=== PATIENT | female | born 1940 | race Caucasian/White ===

== ENCOUNTER 2018-05-08 15:46 | Inpatient (IN) | payer MEDICARE, OTHER ==
[~2018-05-08] VITALS: Ht 160 cm; Wt 55.8 kg
--- NOTE | ~2018-05-08 | PR ---
[place], [place] PROGRESS NOTE NAME: SOMMER GRANDA UNIT #: [id number] ROOM: 426 DOCTOR: SHRUTI STREETERJUNE BIRTHDATE: [birth year] DOS: 05/17/2018 SUBJECTIVE: The patient is a 77-year-old female who is being followed for C. diff colitis and a GI bleed. She remains on oral vancomycin as well as IV Flagyl. She continues to have loose stools, though per documentation of her I and O, they are decreasing. The patient herself is very lethargic, unable to give any review of systems. No further emesis documented. She is receiving tube feeding via PEG. She has been afebrile. LABORATORY DATA: BUN 12, creatinine 0.45. PHYSICAL EXAMINATION: GENERAL: A 77-year-old very lethargic female in no acute distress. HEENT: Normocephalic. NECK: Seems supple. LUNGS: Clear to auscultation bilaterally. Respirations even and unlabored. HEART: Regular rhythm. No murmur appreciated. ABDOMEN: Soft, nondistended. PEG site, no purulent discharge or cellulitis. EXTREMITIES: No edema. SKIN: Warm, dry, free of rashes. GENITOURINARY: She does currently have a liquid stool with small amount of bishop blood in it. ASSESSMENT AND PLAN: Clostridium difficile with gastrointestinal bleed as well as she has had some issues with recurrent vomiting; however, according to her I and O charting that seems to have improved. The patient remains on oral vancomycin via her PEG and is off of IV Flagyl at this time. 1 agreed with the assessment and plan done by the nurse practitioner, Nevaeh Bahena on 05/17/2018. I reviewed the labs and imaging and made the necessary changes in the note. NEVAEH BAHENA CNP [place], [place] PROGRESS NOTE NAME: SOMMER GRANDA UNIT #: [id number] ROOM: 426 DOCTOR: SHRUTI STREETERJUNE BIRTHDATE: [birth year] Eleanor Carbajal MD CM:PNJOYCE [id number] JUNE SHRUTI [facility] 05/31/18 1039 interface
--- NOTE | ~2018-05-08 | O ---
[place], [place] OPERATIVE NOTE NAME: SOMMER GRANDA UNIT #: [id number] ROOM: 426 DOCTOR: JORGE ALBERTO LOPEZ MD BIRTHDATE: [birth year] DOS: 05/12/2018 HISTORY OF PRESENT ILLNESS: A 77-year-old patient who presented with malnutrition, protein-calorie type, emaciation, and dementia. Consultation has been dictated already in detail. The patient with known history of C. diff colitis, on the therapy. PROCEDURE: Today's procedure part of investigation is panendoscopy plus PEG tube placement. PREMEDICATION: Propofol. SCOPE: Olympus forward-viewing gastroscope Q10 video. REPORT: After putting the patient in left lateral position and application of lubricant to the scope, the scope was introduced. Thereafter, under direct visualization, advanced through the length of esophagus without difficulty. Gastric pouch was entered. Transillumination sign in subxiphoid, left leniency area was noticed, anterior abdominal wall aseptically prepped. Duodenal patency assured, 2 mL of Xylocaine was injected in subxiphoid area corresponding with best transillumination sign. Trocar was introduced. Guidewire was advanced, grasped with forceps, orally extracted. Gastrostomy tube Libyan 20 was anchored to it, orally pulled recovered from the surface of the abdomen. Anchors placed, patency checked, tolerated the procedure well. IMPRESSION: Percutaneous endoscopic gastrostomy, neurogenic dysphagia, and protein-calorie malnutrition. PLAN: Caloric needs and support for ongoing hypermetabolic state "C. difficile colitis." Work in progress. JORGE ALBERTO LOPEZ MD CM:OPRECORD:OPERATIVE NOTE [id number] JORGE ALBERTO LOPEZ MD 05/12/18 1246 interface
--- NOTE | ~2018-05-08 | PR ---
[place], [place] PROGRESS NOTE NAME: SOMMER GRANDA [facility] #: [id number] UNIT #: [id number] ROOM: 426 DOCTOR: VIDA URIAS MD BIRTHDATE: [birth year] DOS: 05/17/2018 SUBJECTIVE: The patient has been admitted to the hospital with unspecified GI bleeding, urinary tract infection, dementia, confusion, metabolic encephalopathy, dehydration, hypokalemia, severe protein-calorie malnutrition, on tube feeding, hyperglycemia, urinary tract infection, hypertension, GERD syndrome. Previous back surgery and hip surgery and C. diff colitis, failure to thrive, chronic anemia. The patient is gradually improving. Not in any distress, but she is not too much communicative. Basic metabolic profile showed glucose 127, BUN 12, creatinine 0.45, GFR 60, so renal failure is much improved. Ultrasound of the abdomen shows diffuse hepatic steatosis, cholelithiasis without evidence of cholecystitis or biliary dilatation. CBC shows white count 9500, hemoglobin 11.3, hematocrit 34.7. OBJECTIVE: VITAL SIGNS: Her blood pressure and 118/69, pulse 78, respirations 18, temperature 98.2 and the patient is gradually improving. VIDA URIAS MD CM:PNTRANS [id number] VIDA URIAS MD 05/18/18 1455 interface
--- NOTE | ~2018-05-08 | PR ---
[place], [place] PROGRESS NOTE NAME: SOMMER GRANDA UNIT #: [id number] ROOM: 426 DOCTOR: ОЛЕГ JENNINGS,STEPHEN BIRTHDATE: [birth year] DOS: 05/17/2018 ADDENDUM This is an addendum to the progress note done by the nurse practitioner, Nevaeh Adam on patient on 05/17/2018. 1 agreed with the assessment and plan done by the nurse practitioner, Nevaeh Adam on 05/17/2018. I reviewed the labs and imaging and made the necessary changes in the note. Stephen Denney MD CM:PNTRANS 1641 [id number] STEPHEN DENNEY MD 05/31/18 1048 interface
--- NOTE | ~2018-05-08 | CON ---
[place], [place] REPORT OF CONSULTATION [id number] UNIT #: [id number] ROOM: 426 DOCTOR: JORGE ALBERTO LOPEZ MD BIRTHDATE: [birth year] DOS: 05/12/2018 HISTORY OF PRESENT ILLNESS: A 77-year-old patient who has presented with neurogenic dysphagia, protein-calorie malnutrition, dysphagia with anemia. Family has had a lot of discussions before they finally decided the patient may benefit from a PEG tube placement and we have been asked for a PEG placement. Her latest labs and records were reviewed. Her white blood cells are 5, H and H 10 and 31, platelets 350. Comprehensive metabolic panel, GFR greater than 60, electrolytes balanced. Liver function test is normal. Urine culture with 25,000 bacteria. Basic metabolic has been addressed to correction of potassium to 3.5. PAST MEDICAL HISTORY: Associated with essential hypertension, neurogenic dysphagia, gastroesophageal reflux, protein-calorie malnutrition. PAST SURGICAL HISTORY: Hip and back. SOCIAL HISTORY: Nonsmoker, nonalcohol consumer. FAMILY HISTORY: Noncontributory. ALLERGIES: No known medications. MEDICATION LIST: Has been reviewed. REVIEW OF SYSTEMS: Cannot be obtained from her due to cognitive incapabilities. PHYSICAL EXAMINATION: GENERAL: Frail patient, non-communicable, extremely cachectic and emaciated. VITAL SIGNS: Stable. HEENT: Benign otherwise for age and category of disease otherwise. NECK: Supple. LUNGS: No wheezes, no rhonchi. HEART: Normal sinus rhythm. No gallop, no murmur. ABDOMEN: Flat. No hepato-organomegaly. Bowel sounds present. No pulsatile mass. EXTREMITIES: No cyanosis, no pedal edema. NEUROLOGIC: Alert and disoriented. DIAGNOSTIC DATA: Labs reviewed, records reviewed. IMPRESSION AND PLAN: Protein-calorie malnutrition, dementia, neurogenic dysphagia, cachexia, and gastroesophageal reflux as a part of her points of concern, we are going to proceed with EGD, possible PEG tube. Scan of the abdomen has been reviewed, right-sided hydronephrosis has been recognized, diffuse thickening of the transverse colon has been recognized, possible C. diff as etiology, hepatic steatosis, and pleural effusion, all have been recognized. However, this patient is in desperate need of calories and nutritional support and we will proceed with PEG tube placement. C. diff has been recognized already, has been under treatment already. [place], [place] REPORT OF CONSULTATION NAME: SOMMER GRANDA Claribel UNIT #: [id number] ROOM: 426 DOCTOR: JORGE ALBERTO LOPEZ MD BIRTHDATE: [birth year] JORGE ALBERTO LOPEZ MD CM:CONSTR:REPORT OF CONSULTATION 1206 05/13/18 0020 interface
--- NOTE | ~2018-05-08 | O ---
[place], [place] OPERATIVE NOTE NAME: SOMMER GRANDA UNIT #: [id number] ROOM: 426 DOCTOR: JOHN JENNINGS,JORGE ALBERTO BIRTHDATE: [birth year] DOS: 05/21/2018 INDICATIONS: The patient has presented with neurogenic dysphagia. The patient has had a PEG device previously in place as migrated nonfunctional at the present time. PROCEDURE: Today's procedure part of investigation is panendoscopy plus removal of migrated PEG tube plus placement of a new gastrostomy device Tongan 18. PREMEDICATION: Propofol. SCOPE: Olympus forward-viewing gastroscope Q10 video. REPORT: After putting the patient in left lateral position and application of lubricant to the scope, the scope was introduced; thereafter, under direct visualization, advanced through the length of esophagus without difficulty. Gastric pouch was entered migrated PEG, balloon has gone as far as the third portion of the duodenum. The balloon was deflated externally and tube was entirely pulled out. New gastrostomy 18-Tongan was changed with Neosporin ointment introduced into the existing ostomy immediately pedal and inflated with 15 mL of normal saline anchors from outside place and secured strap was added. The patient extubated, tolerated the procedure well. IMPRESSION: Migrated gastrostomy tube, status post removal, replacement, hiatal hernia, mild gastritis. PLAN: Resumption of all orders utilization of new G-tube for meds and feedings. Furthermore, this patient has advanced oral thrush. We are going to start her on Diflucan and creatinine normal. We are going to start her on 100 mg Diflucan every day x 10 days. Thank you very much indeed. JORGE ALBERTO LOPEZ MD CM:OPRECORD:OPERATIVE NOTE 1305 1315 JORGE ALBERTO LOPEZ MD 05/29/18 0723 interface
--- NOTE | ~2018-05-08 | PR ---
[place], [place] PROGRESS NOTE NAME: SOMMER GRANDA [facility] #: [id number] UNIT #: [id number] ROOM: 426 DOCTOR: VIDA URIAS MD BIRTHDATE: [birth year] DOS: 05/18/2018 SUBJECTIVE: The patient has been admitted to the hospital with C. diff colitis and GI bleeding. The patient is feeling better. She is having G-tube feeding. I have talked to the nurses and they say patient is not having much diarrhea, only one stool motion in the last 24 hours. OBJECTIVE: Her vital signs are stable. She is not in any distress. The patient due to her mental condition not able to communicate and talk to me regarding how she is feeling. Her basic metabolic profile showed glucose 127, BUN 12, creatinine 0.45, GFR 60, so her renal failure is much improved. Ultrasound of the abdomen was done, which shows diffuse hepatic steatosis, cholelithiasis without evidence of cholecystitis and biliary dilatation. Her heart is regular, chest is clear and G-tube well in position. No edema of leg. Her blood pressure is 118/72, pulse 87, respirations 18, temperature 97.9. VIDA URIAS MD CM:PNTRANS 1120 7 VIDA URIAS MD 05/19/188 interface
[~2018-05-08 15:46] MED LIST: DONEPEZIL HCL5 MG PO; FLAGYL500 MG PO; OMEPRAZOLE40 MG PO
[2018-05-08 15:53] VITALS: BP 121/81
[2018-05-08] MEDS ORDERED: PAXIL10 MG PO (16:02)
[2018-05-08] MEDS ORDERED: PENTOXIFYL XR400 MG PO (16:03)
[2018-05-08] MEDS ORDERED: LYRICA150 M1 PO (16:05)
[2018-05-08] MEDS ORDERED: [UNRECOGNIZED DRUG - OTHER] PO (16:07)
[2018-05-08] MEDS ORDERED: TOPROL XL50 M1 PO (16:07)
--- NOTE | 2018-05-08 16:11 | NUR ---
POSITIVE FOR C-DIFF.
[2018-05-08 16:26] LABS: BASO # 0.1 10*3/uL (0.0-0.1); BASO % 0.9 % (0.0-1.0); EOS % 0.3 % (1.0-4.0); HEMATOCRIT 40.2 % (37.0-47.0); HEMOGLOBIN 13.9 g/dl (12.0-16.0); LYMPH # 0.8 10*3/uL (1.3-4.4); LYMPH % 7.9 % (27.0-41.0); MEAN CELL VOLUME 88.7 fl (81.0-99.0); MEAN CORPUSCULAR HGB 30.7 pg (27.0-31.0); MEAN CORPUSCULAR HGB CONC 34.6 g/dl (33.0-37.0); MEAN PLATELET VOLUME 8.5 fl (9.6-12.3); MONO # 1.2 10*3/uL (0.1-1.0); MONO % 12.5 % (3.0-9.0); NEUT # 7.5 10*3/uL (2.3-7.9); NEUT % 77.4 % (47.0-73.0); PLATELET COUNT AUTOMATED 584 10*3/uL (130-400); RED BLOOD COUNT 4.53 10*6/uL (4.10-5.10); WHITE BLOOD COUNT 9.7 10*3/uL (4.8-10.8)
[2018-05-08 16:33] LABS: INTERNATIONAL NORM RATIO 1.3 (2.0-3.5)
[2018-05-08 16:46] LABS: ALBUMIN 2.3 gm/dl (3.1-4.5); ALKALINE PHOSPHATASE 93 U/L (45-117); BUN 15 mg/dl (7-24); CHLORIDE 102 mmol/L (98-107); CREATININE 0.35 mg/dL (0.55-1.02); LIPASE 112 U/L (73-393); POTASSIUM 3.2 mmol/L (3.5-5.1); SGOT/AST 11 IU/L (3-35); SGPT/ALT 13 U/L (12-78); SODIUM 139 mmol/L (136-145)
[2018-05-08 16:51] LABS: BILIRUBIN 1+ (NEGATIVE); BLOOD 3+ (NEGATIVE); CLARITY SL CLOUDY (CLEAR); COLOR YELLOW (YELLOW); GLUCOSE NEGATIVE (NEGATIVE); KETONE 3+ (NEGATIVE); LEUKO ESTERASE TRACE (NEGATIVE); NITRITE POSITIVE (NEGATIVE); PH 6.5 (5.0-9.0); SPECIFIC GRAVITY >= 1.030 (1.005-1.030); UROBILINOGEN 0.2 E.U./dl (0.2-1.0)
[2018-05-08 17:03] LABS: BACTERIA 2+; RBC TNTC rbc/hpf (0-2); WBC 16-20 wbc/hpf (0-5); YEAST 2+
--- NOTE | 2018-05-08 18:26 | NUR ---
MSADMTime: N A 77 year old FEMALE admitted to 4E under services of DR. MARC JENNINGS,JOSE. Pt. arrived via bed from ER. Chief complaint: GI BLEED. WALTER GOMEZ
--- NOTE | 2018-05-08 19:45 | NUR ---
ATTEMPTED TO CALL DR. LOPEZ X3. PHONE KEEPS GOING STRAIGHT TO VOICEMAIL. WILL CONTINUE TO TRY.
[2018-05-08 20:00] VITALS: BP 110/75
--- NOTE | 2018-05-08 23:51 | NUR ---
STILL UNABLE TO REACH DR. LOPEZ. WILL TRY AGAIN IN THE AM.
[2018-05-09] VITALS: BP 126/80
--- NOTE | 2018-05-09 06:15 | NUR ---
DR. LOPEZ'S PHONE CONTINUING TO GO STRAIGHT TO VOICEMAIL. DR. MCCLOUD NOTIFIED AT THIS TIME.
--- NOTE | 2018-05-09 06:45 | NUR ---
SOMMER GRANDA [id number] Please refer to the physician's history and physical for past medical history, comorbid conditions, and allergies. Diagnosis: UTI GI BLEED METABOLIC ENCEPHALOPATHY CONFUSION Khai Score: , WOUND DESCRIPTIONS: Location of the wound: coccyx Type of wound: stage 2 Thickness: Partial Size: 1.2cm x 0.4cm x 0.1cm Tunneling: noen Undermining: none Sinus Tract: none Presence of Exudate: Serous Amount: Light Color: Red Odor: None Periwound Skin Appearance: Erythema Wound edges: approximated Pain (associated with wound): tender at time of assessment How does patient state this happened? pt unsure of when this happened Bilateral heels are red and blanchable at time of assessment. No open areas noted at this time. Patient did state her heels are very tender when I touched them. No drainage noted at this time. Surface the patient is resting on: Isoflex SKIN PREVENTION RECOMMENDATION: 1. Pressure redistribution support surface as appropriate 2. Elevate heels 3. Remove boots/TEDS every shift and reapply 4. Head of bed 30 degrees as tolerated 5. Assess nutrition and hydration 6. Manage moisture 7. Avoid the use of containment devices while in bed 8. Use absorptive products on surfaces limit layers of linens on bed 9. Turn and reposition every 1-2 hours in bed and every 1 hour in chair as tolerated 10. Weight shifts every 15 minutes while up in chair 11. Offloading with pillows or device to keep heels elevated off bed 12. Monitor skin at least every shift 13. Inspect under medical devices twice a day WOUND TREATMENT RECOMMENDATIONS: Wheelchair cushion when oob. Heel raiser pro boots while in bed. Cleanse coccyx with soap and water and apply calazime every shift and prn for soiling.
[2018-05-09 07:26] LABS: BASO # 0.1 10*3/uL (0.0-0.1); BASO % 1.8 % (0.0-1.0); EOS % 0.4 % (1.0-4.0); HEMATOCRIT 38.5 % (37.0-47.0); HEMOGLOBIN 12.6 g/dl (12.0-16.0); LYMPH # 0.7 10*3/uL (1.3-4.4); LYMPH % 13.1 % (27.0-41.0); MEAN CORPUSCULAR HGB 29.4 pg (27.0-31.0); MEAN CORPUSCULAR HGB CONC 32.7 g/dl (33.0-37.0); MEAN PLATELET VOLUME 8.5 fl (9.6-12.3); MONO # 0.8 10*3/uL (0.1-1.0); MONO % 13.7 % (3.0-9.0); NEUT # 3.8 10*3/uL (2.3-7.9); NEUT % 69.9 % (47.0-73.0); PLATELET COUNT AUTOMATED 515 10*3/uL (130-400); RED BLOOD COUNT 4.28 10*6/uL (4.10-5.10); RED CELL DISTRI WIDTH 14.2 % (0-14.5); WHITE BLOOD COUNT 5.5 10*3/uL (4.8-10.8)
--- NOTE | 2018-05-09 07:30 | NUR ---
PATIENT ABLE TO RECALL THEIR NAME AND , CONFUSED ABOUT LOCATION STATING "IM ON AN AIRPLANE". NPO STATUS UNTIL SPEECH CONSULT IS COMPLETED. SURAJ DUONGCC
--- NOTE | 2018-05-09 07:47 | NUR ---
PHYSICAL THERAPY Nursing screen received. PT orders also received. Thank you. Gloria Reinoso,PT
[2018-05-09 07:54] LABS: INTERNATIONAL NORM RATIO 1.3 (2.0-3.5)
[2018-05-09 07:56] LABS: ALKALINE PHOSPHATASE 77 U/L (45-117); BUN 18 mg/dl (7-24); CHLORIDE 105 mmol/L (98-107); CHOLESTEROL 103 mg/dL (<200); CREATININE 0.41 mg/dL (0.55-1.02); HDL CHOLESTEROL 21 mg/dl (40-60); LDL CHOLESTEROL 58 mg/dL (9-159); PHOSPHOROUS 3.2 mg/dL (2.5-4.9); POTASSIUM 3.3 mmol/L (3.5-5.1); SGOT/AST 7 IU/L (3-35); SGPT/ALT 9 U/L (12-78); SODIUM 140 mmol/L (136-145); TOTAL PROTEIN 5.7 gm/dL (6.4-8.2); TRIGLYCERIDES 119 mg/dl (<150); VLDL CHOLESTEROL 24 mg/dL (6-40)
[2018-05-09 08:00] VITALS: BP 128/78
--- NOTE | 2018-05-09 08:10 | NUR ---
NOTIFIED DR Rell MEJÍA THAT DR LOPEZ IS NOT SEEING PT UNTIL AFTER THE 05/11/18 HE IS OUT OF TOWN.ORDER RECIEVED FOR DIET.
[2018-05-09] MEDS ORDERED: VALIUM5 MG PO (08:45)
[2018-05-09] MEDS ORDERED: ALLERGY RELIEF180 MG PO (08:46)
[2018-05-09] MEDS ORDERED: OMEPRAZOLE20 M2 PO (08:49)
--- NOTE | 2018-05-09 08:49 | NUR ---
HOME MEDS RECONCILED AND UPDATED WITH LIST PROVIDED FROM [facility].
--- NOTE | 2018-05-09 08:49 | NUR ---
PHYSICAL THERAPY PAtient with breakfast at this time. Thank you for this referral. justin Reinoso,PT
--- NOTE | 2018-05-09 09:20 | NUR ---
SPOKE TO DR LOPEZ AND NOTIFIED HIM OF NEW CONSULT FOR GI BLEED,ORDER RECIEVED FOR CBC IN AM AND HIM TO BE NOTIFIED AT 10 AM OF RESULTS.
--- NOTE | 2018-05-09 09:24 | NUR ---
DIETARY ORDERED PER SPEECH THERAPY'S RECOMMENDATION TO SOFT DIET WITH THIN LIQUIDS.
[2018-05-09 09:35] LABS: VITAMIN D, 25-HYDROXY 33.4 ng/mL (30-100)
--- NOTE | 2018-05-09 09:35 | NUR ---
Dr. Overton notified of wound care recommendations.
--- NOTE | 2018-05-09 10:00 | NUR ---
PATIENT INCONTIENT OF BM, STOOL SAMPLE SENT TO LAB, PATIENT RECEIVED A BATH AND LINENS CHANGED. SURAJ DUONGCC
--- NOTE | 2018-05-09 10:30 | NUR ---
SPEECH PATHOLOGY Patient seen for bedside swallowing evaluation this morning per orders. Patient able to provide name and but not oriented to time or location. Patient's oral [facility] exam revealed four bottom teeth in poor condition and lingual and labial strength and ROM to be WFL with mild impairments in coordination. Patient's volitional cough initially weak but able to strengthen with cues. Patient reports no difficulties with swallowing. Patient assessed with ice chips, thin liquid via straw, applesauce, scrambled eggs, and moldovan toast. Patient demonstrated tolerance of sips of thin liquid via straw with no overt s/s of pen/aspiration observed across all trials. Patient demonstrating tolerance of bites of applesauce and scrambled egg. Mild lingual residue observed following bites of scrambled egg. Patient was able to clear oral cavity with sips of thin liquid. Patient attempted to eat bite of moldovan toast but spit out the piece stating it was too rough. Patient independently dipped moldovan toast into syrup to moisten the bread and was able to consume one bite. Patient recommended mechanical soft diet with thin liquids. Patient educated on safe swallowing strategies including sitting uprigt during all PO intake, taking small bites and sips, and alternating between solids and liquids to help clear oral cavity. Results and recommendations shared with patient's nurse and physican who verbalized understanding. No follow up treatment warranted as patient demonstrates safety of least restrictive diet. Thank you for your consultation. Please contact Speech Therapy with any questions. Ana Robb MA [facility] CREDIT COUNSELOR
--- NOTE | 2018-05-09 10:30 | NUR ---
PATIENT HAD A SMALL EMESIS DURING MEDPASS. GOING TO TRY TO GIVE REST OF THE MEDS AT LUNCH TIME ONCE STOMACH IS SETTLED. SURAJ DUONGCC
--- NOTE | 2018-05-09 10:49 | NUR ---
Geriatric Personal Care Aide in to see patient. Student nurse at the bedside. Patient is not feeling well and having emesis at this time. Will follow up at a later time.
[2018-05-09 12:00] VITALS: BP 127/65
--- NOTE | 2018-05-09 12:00 | NUR ---
PATIENT WAS ABLE TO HOLD DOWN THE REST OF HER 1000 MEDICATIONS. STOMACH IS SETTLED. ORDERED LUNCH BUT STATES SHE IS NOT HUNGRY AT THIS TIME. SURAJ DUONGCC
--- NOTE | 2018-05-09 12:54 | NUR ---
PT. TURNED TO RIGHT SIDE, HAD A BLOOD LIQUID STOOL. REFUSED LUNCH. SURAJ ORDONEZ SPALDOCC
[2018-05-09 14:06] LABS: BILIRUBIN 2+ (NEGATIVE); BLOOD 3+ (NEGATIVE); CLARITY CLOUDY (CLEAR); COLOR YELLOW (YELLOW); GLUCOSE NEGATIVE (NEGATIVE); KETONE 2+ (NEGATIVE); LEUKO ESTERASE TRACE (NEGATIVE); NITRITE POSITIVE (NEGATIVE); PH 6.5 (5.0-9.0); UROBILINOGEN 0.2 E.U./dl (0.2-1.0)
[2018-05-09 14:14] LABS: RBC TNTC rbc/hpf (0-2)
[2018-05-09 14:15] LABS: BACTERIA 2+; YEAST 2+
--- NOTE | 2018-05-09 14:21 | NUR ---
PT STRAIGHTED CATHED FOR 75CC TEA COLORED URINE, UA AND C&S SENT TO LAB, IV INFILTRATED IN LEFT ANTECUBITAL AND WAS RESTARTED IN RIGHT WRITST USING ASEPTIC TECHNIQUE, WARM COMPRESS APPLIED TO LEFT ARM WITH SOME DECREASE IN SWELLING SURAJ ORDONEZ SPNRCC
--- NOTE | 2018-05-09 14:44 | NUR ---
PHYSICAL THERAPY PAtient with nursing at this time. Gloria Reinoso,PT
--- NOTE | 2018-05-09 15:00 | NUR ---
Tile Trimmer in to see patient. She is drowsy and unable to answer questions at this time. Will follow up at a later time.
--- NOTE | 2018-05-09 15:09 | NUR ---
Nursing screen received and chart review completed. Patient admitted from [facility] with rectal bleed and r/o c-diff with h/ o dementia. Patient may benefit from Occupational Therapy evaluation if there is a change in mental status and decline in Adls. Thank you. Jena Gomes OTR/l
--- NOTE | 2018-05-09 15:23 | NUR ---
Patient comes from [facility], clinical updates faxed, patient is ok to return when medically stable for discharge.
[2018-05-09 16:00] VITALS: BP 144/76
--- NOTE | 2018-05-09 18:51 | NUR ---
NOTIFIED DR GARCIA PT HAD LARGE BLOODY BM. ARRIVED TO ASSESS THE PT. ORDERS RECIEVED.
[2018-05-09 19:18] LABS: HEMATOCRIT 36.6 % (37.0-47.0); MEAN CELL VOLUME 90.6 fl (81.0-99.0); MEAN CORPUSCULAR HGB 29.7 pg (27.0-31.0); MEAN CORPUSCULAR HGB CONC 32.8 g/dl (33.0-37.0); MEAN PLATELET VOLUME 8.5 fl (9.6-12.3); PLATELET COUNT AUTOMATED 501 10*3/uL (130-400); RED BLOOD COUNT 4.04 10*6/uL (4.10-5.10); RED CELL DISTRI WIDTH 14.2 % (0-14.5); WHITE BLOOD COUNT 5.5 10*3/uL (4.8-10.8)
[2018-05-09 19:58] LABS: ATYPICAL LYMPHS 1 % (0-0); PLATELET SUFFICIENCY HIGH (NORMAL); POLYCHROMASIA SLIGHT; TOTAL CELLS COUNTED 100 #CELLS; TOXIC GRANULATION MODERATE
[2018-05-09 20:00] VITALS: BP 141/70
--- NOTE | 2018-05-09 20:00 | NUR ---
PT RESTING IN BED ON RIGHT SIDE WITH EYES CLOSED, AWAKENS EASILY. IVF INFUSING WITH NO PROBLEM. REPOSITIONED IN BED. CALL DASHA ALAS.
--- NOTE | 2018-05-09 22:30 | NUR ---
PT RESTING IN BED. TOLERATED ROUTINE MED WITH NO PROBLEM. NO C/O AT THIS TIME. REPOSITIONED IN BED. CALL LIGHT IN REACH. BED ALARM ON.
[2018-05-10] VITALS: BP 144/73
--- NOTE | 2018-05-10 04:00 | NUR ---
SLEEPING IN BED. RESP-EASY AND REGULAR. CALL LIGHT IN REACH. BED ALARM ON.
[2018-05-10 06:54] LABS: BASO # 0.1 10*3/uL (0.0-0.1); BASO % 1.6 % (0.0-1.0); EOS % 0.2 % (1.0-4.0); HEMATOCRIT 35.2 % (37.0-47.0); HEMOGLOBIN 11.4 g/dl (12.0-16.0); LYMPH # 0.5 10*3/uL (1.3-4.4); LYMPH % 11.8 % (27.0-41.0); MEAN CORPUSCULAR HGB 29.5 pg (27.0-31.0); MEAN CORPUSCULAR HGB CONC 32.4 g/dl (33.0-37.0); MEAN PLATELET VOLUME 8.7 fl (9.6-12.3); MONO # 0.5 10*3/uL (0.1-1.0); MONO % 12.4 % (3.0-9.0); NEUT # 3.2 10*3/uL (2.3-7.9); NEUT % 72.6 % (47.0-73.0); PLATELET COUNT AUTOMATED 508 10*3/uL (130-400); RED BLOOD COUNT 3.87 10*6/uL (4.10-5.10); RED CELL DISTRI WIDTH 14.3 % (0-14.5); WHITE BLOOD COUNT 4.3 10*3/uL (4.8-10.8)
[2018-05-10 07:27] LABS: CHLORIDE 110 mmol/L (98-107); POTASSIUM 3.2 mmol/L (3.5-5.1); SODIUM 144 mmol/L (136-145)
[2018-05-10 07:37] LABS: ALKALINE PHOSPHATASE 67 U/L (45-117); BUN 16 mg/dl (7-24); SGOT/AST 10 IU/L (3-35); SGPT/ALT 8 U/L (12-78); TOTAL PROTEIN 5.6 gm/dL (6.4-8.2)
[2018-05-10 08:02] VITALS: BP 158/85
--- NOTE | 2018-05-10 09:00 | NUR ---
PT LETHARGIC NOT FOLLOWING COMMANDS OR TAKING MEDS. DISCUSSED WITH DR TRAN. HE STATED WE WILL WAIT TO SEE WHAT THE CONSULTS SAY.
--- NOTE | 2018-05-10 10:30 | NUR ---
PT REFUSED MEDS DR TRAN MADE AWARE. BP ELEVATED. NEW ORDER RECEIVED FOR VASOTEC 1.25 IV X1.
[2018-05-10 12:00] VITALS: BP 164/88
--- NOTE | 2018-05-10 12:21 | NUR ---
REPORTED LABS RESULTS TO DR LOPEZ NEW ORDERS RECEIVED
--- NOTE | 2018-05-10 12:24 | NUR ---
ANSWERING SERVICE WAS NOTIFIED OF DR. ОЛЕГ FIGUEROA. RESPONSE OF NOTIFICATION WAS OK I WILL HAVE HER CALL YOU BACK. CHRISTINE WADSWORTH
--- NOTE | 2018-05-10 12:43 | NUR ---
PT DOES ANSWERS WITH ONE WORD ANSWERS. STATES THAT SHE IS NOT HUNGRY AND DOES NOT WANT TO TAKE HER MEDS. SHE SAID SHE IS "ALRIGHT". I ASKED IF SHE FELT SAD OR IF SHE WAS GIVING UP AND SHE SAID NO. SHE BARELY WITH LIFT HER ARM TO GET HER BLOOD PRESSURE TAKEN. WITH MUCH ENCOURAGEMENT SHE DID BUT OTHER THAN THAT SHE DOES NOT WANT TO PARTICIPATE IN HER CARE FOR THE MOST PART.
[2018-05-10 16:00] VITALS: BP 150/93
--- NOTE | 2018-05-10 19:15 | NUR ---
PT ASLEEP IN BED. NO SIGNS OR SYMPTOMS OF DISTRESS NOTED AT THIS TIME. BED LOW, CALL LIGHT WITHIN REACH. WILL CONTINUE TO MONITOR.
[2018-05-10 20:00] VITALS: BP 150/81
--- NOTE | 2018-05-10 21:39 | NUR ---
ATTEMPTED TO ADMINISTERED PT'S SCHEDULED 2200 MEDS. PT NOT ABLE TO AWAKEN ENOUGH TO TAKE THEM. PT WILL AWAKEN TO VERBAL COMMANDS WELL TO TOUCH BUT IS NOT ABLE TO TAKE THE MEDICATIONS.
[2018-05-11] VITALS: BP 170/96
--- NOTE | 2018-05-11 01:00 | NUR ---
DR QUIROGA NOTIFIED THAT THE 0200 DOSE OF PROCALAMINE IS NOT AVAILABLE UNTIL MORNING AND HE STATED THAT IT IS OKAY.
--- NOTE | 2018-05-11 04:17 | NUR ---
PT ASLEEP AT THIS TIME. NO S/S OF DISTRESS NOTED. WILL CONTINUE TO MONITOR.
[2018-05-11 06:13] LABS: BASO # 0.1 10*3/uL (0.0-0.1); BASO % 1.2 % (0.0-1.0); EOS % 0.4 % (1.0-4.0); HEMOGLOBIN 11.6 g/dl (12.0-16.0); LYMPH # 0.8 10*3/uL (1.3-4.4); LYMPH % 15.4 % (27.0-41.0); MEAN CELL VOLUME 90.7 fl (81.0-99.0); MEAN CORPUSCULAR HGB 29.2 pg (27.0-31.0); MEAN CORPUSCULAR HGB CONC 32.2 g/dl (33.0-37.0); MEAN PLATELET VOLUME 8.6 fl (9.6-12.3); MONO # 0.6 10*3/uL (0.1-1.0); MONO % 12.8 % (3.0-9.0); NEUT # 3.4 10*3/uL (2.3-7.9); NEUT % 68.6 % (47.0-73.0); PLATELET COUNT AUTOMATED 495 10*3/uL (130-400); RED BLOOD COUNT 3.97 10*6/uL (4.10-5.10); RED CELL DISTRI WIDTH 14.2 % (0-14.5); WHITE BLOOD COUNT 4.9 10*3/uL (4.8-10.8)
[2018-05-11 06:40] LABS: BUN 16 mg/dl (7-24); CHLORIDE 108 mmol/L (98-107); CREATININE 0.33 mg/dL (0.55-1.02); IRON 31 ug/dL (50-170); PHOSPHOROUS 2.2 mg/dL (2.5-4.9); POTASSIUM 2.9 mmol/L (3.5-5.1); SODIUM 145 mmol/L (136-145); TOTAL IRON BINDING CAPACITY 124 ug/dl (250-450)
--- NOTE | 2018-05-11 07:30 | NUR ---
SPOKE TO DR GARCIA REGARDING PT REFUSING MEDS AND HE STATED HE WILL PUT IN AN ORDER FOR IV POTASSIUM INSTEAD OF PO. I ALSO TOLD HIM ID RECOMMENDATIONS FROM YESTERDAY.
[2018-05-11 08:00] VITALS: BP 138/80; BP 149/88
--- NOTE | 2018-05-11 08:15 | NUR ---
24 HR chart check completed.
--- NOTE | 2018-05-11 09:30 | NUR ---
PATIENT UNCOOPERATIVE WITH CARE, REFUSING TO OPEN EYES OR INTERACT WITH STAFF. RESPIRATIONS EASY. LUNGS DIMINISHED. PULSE OX 95% RA. HEEL PROTECTORS IN PLACE. PROCALAMINE HUNG PER ORDER. CALL LIGHT WITHIN REACH. BED ALARM MAINTAINED FOR SAFETY
--- NOTE | 2018-05-11 10:10 | NUR ---
ATTEMPTED TO GIVE ORAL VANC, PATIENT SPIT OUT YELLING "YOU B, I'LL KILL YOU!"
[2018-05-11 12:00] VITALS: BP 148/72
--- NOTE | 2018-05-11 12:00 | NUR ---
AND SON PRESENT AT BEDSIDE. DISCUSSED CODE STATUS AND WISHES REGARDING CARE. FAMILY WISHES PATIENT TO REMAIN FULL CODE AND HAVE "EVERYTHING DONE."
--- NOTE | 2018-05-11 14:00 | NUR ---
ATTEMPTED TO REACH DR LOPEZ PER REQUEST OF ALEXANDER GARCIA. MESSAGE LEFT. DR LOPEZ OOT UNTIL 05/13
[2018-05-11 16:00] VITALS: BP 130/64
--- NOTE | 2018-05-11 16:40 | NUR ---
DR DENNEY PRESENT ON FLOOR TO ASSESS PATIENT AND DISCUSS PLAN OF CARE. PATIENT UNCOOPERATIVE
--- NOTE | 2018-05-11 18:30 | NUR ---
DR LOPEZ CONTACTED, NEW ORDERS RECEIVED
[2018-05-11 20:00] VITALS: BP 136/73
--- NOTE | 2018-05-11 20:00 | NUR ---
DR TRAN HERE TO ASSESS PATIENT AND DISCUSS PLAN OF CARE
[2018-05-11] MEDS ORDERED: ASCORBIC ACID500 M2 PO (20:07)
[2018-05-11] MEDS ORDERED: VITAMIN D32000 UNI1 PO (20:08)
[2018-05-11] MEDS ORDERED: DULCOLAX10 M1 R (20:16)
--- NOTE | 2018-05-11 22:00 | NUR ---
PATIENT REFUSED 2200 MEDS, SPITTING OUT
--- NOTE | 2018-05-11 22:00 | NUR ---
SPOKE WITH TERELL REGARDING PLAN OF CARE AND EDG WITH POSSIBLE PEG PLACEMENT 05/12. PER PATIENT'S "I'LL BE THERE TOMORROW AROUND 10-10:30."
[2018-05-12] VITALS (9 sets, daily range): BP systolic 112–132; BP diastolic 63–362
--- NOTE | 2018-05-12 05:19 | NUR ---
Recommend follow up for wound care in outpatient setting patient being discharge to another facility at this time.
[2018-05-12 06:25] LABS: ALBUMIN 1.9 gm/dl (3.1-4.5); BUN 16 mg/dl (7-24); CHLORIDE 103 mmol/L (98-107); POTASSIUM 3.5 mmol/L (3.5-5.1); SODIUM 139 mmol/L (136-145)
--- NOTE | 2018-05-12 06:25 | NUR ---
ATTEMPTED TO CONTACT PATIENTS TO INFORM HIM OF THE NEED FOR CONSENT FOR UPCOMING EGD AND POSSIBLE PEG PLACEMENT WITH DR. LOPEZ. NO CONTACT WAS ABLE TO BE MADE AT THIS TIME.
[2018-05-12 06:30] LABS: ALKALINE PHOSPHATASE 70 U/L (45-117); CREATININE 0.38 mg/dL (0.55-1.02); PHOSPHOROUS 2.2 mg/dL (2.5-4.9); SGOT/AST 23 IU/L (3-35); SGPT/ALT 13 U/L (12-78); TOTAL PROTEIN 5.1 gm/dL (6.4-8.2)
[2018-05-12 06:36] LABS: HEMATOCRIT 31.3 % (37.0-47.0); HEMOGLOBIN 10.5 g/dl (12.0-16.0); MEAN CELL VOLUME 90.2 fl (81.0-99.0); MEAN CORPUSCULAR HGB 30.3 pg (27.0-31.0); MEAN CORPUSCULAR HGB CONC 33.5 g/dl (33.0-37.0); PLATELET COUNT AUTOMATED 355 10*3/uL (130-400); RED BLOOD COUNT 3.47 10*6/uL (4.10-5.10); RED CELL DISTRI WIDTH 13.7 % (0-14.5)
[2018-05-12 07:09] LABS: ATYPICAL LYMPHS 2 % (0-0); BASOPHILS 1 % (0-1); PLATELET SUFFICIENCY NORMAL (NORMAL); TOTAL CELLS COUNTED 100 #CELLS
--- NOTE | 2018-05-12 09:00 | NUR ---
Acquisition Associate in to see patient. She is from [facility] and will return there upon discharge. manufacturing planner following.
--- NOTE | 2018-05-12 12:01 | NUR ---
PATIENT TAKEN OFF THE FLOOR BY SURGERY FOR SCHEDULED EGD.
--- NOTE | 2018-05-12 14:46 | NUR ---
PHYSICAL THERAPY PAtient just returned from scope per family visiting and requests no PT this date. Will check on patient at a later date. Thank you for this referral. justin Reinoso,PT
--- NOTE | 2018-05-12 16:41 | NUR ---
SPOKE WITH DR. LOPEZ REGARDING PEG PLACEMENT AND FEEDING FOR NUTRITION. ORDERS RECEIVED.
--- NOTE | 2018-05-12 18:55 | NUR ---
spoke with dietary to provide osmolite for peg tube feeding.
[2018-05-13] VITALS: BP 134/69
--- NOTE | 2018-05-13 01:23 | NUR ---
Shift chart check completed.
[2018-05-13 06:09] LABS: HEMATOCRIT 32.4 % (37.0-47.0); HEMOGLOBIN 10.7 g/dl (12.0-16.0); MEAN CELL VOLUME 89.8 fl (81.0-99.0); MEAN CORPUSCULAR HGB 29.6 pg (27.0-31.0); MEAN PLATELET VOLUME 8.6 fl (9.6-12.3); NUCLEATED RED BLOOD CELL 0.3 % (0.0-0.0); PLATELET COUNT AUTOMATED 254 10*3/uL (130-400); RED BLOOD COUNT 3.61 10*6/uL (4.10-5.10); RED CELL DISTRI WIDTH 13.3 % (0-14.5); WHITE BLOOD COUNT 7.7 10*3/uL (4.8-10.8)
[2018-05-13 06:29] LABS: BUN 9 mg/dl (7-24); CHLORIDE 99 mmol/L (98-107); CREATININE 0.34 mg/dL (0.55-1.02); POTASSIUM 3.3 mmol/L (3.5-5.1); SODIUM 136 mmol/L (136-145)
[2018-05-13 06:44] LABS: VANCOMYCIN RANDOM 1.9 ug/mL
[2018-05-13 06:51] LABS: BASOPHILS 3 % (0-1); POLYCHROMASIA SLIGHT; TOTAL CELLS COUNTED 100 #CELLS; TOXIC GRANULATION SLIGHT; VACUOLATION OF NEUTROPHILS SLIGHT
[2018-05-13 06:52] LABS: PLATELET SUFFICIENCY NORMAL (NORMAL)
--- NOTE | 2018-05-13 07:39 | NUR ---
Updated clincals faxed to [facility] for review. Patient is ok to return when medically stable for discharge.
[2018-05-13 08:00] VITALS: BP 118/63
--- NOTE | 2018-05-13 09:00 | NUR ---
Psychology Intern in to see patient. She is from [facility] and will return there upon discharge. traffic and transport planner following.
[2018-05-13 12:00] VITALS: BP 120/63
[2018-05-13 16:00] VITALS: BP 131/76
--- NOTE | 2018-05-13 16:19 | NUR ---
PHYSICAL THERAPY PAtient respectfully requests no PT this date. Will check on patient at a later date. Thank you for this referral. justin Reinoso,PT
--- NOTE | 2018-05-13 19:00 | NUR ---
PATIENT IS AWAKE AND RESTING QUIETLY IN BED. PT IS MINIMALLY VERBAL BUT WILL RESPOND WITH ONE WORD ANSWERS. NO S/S OF DISTRESS NOTED AT THIS TIME. WILL CONTINUE TO MONITOR.
[2018-05-13 20:00] VITALS: BP 130/73
[2018-05-14] VITALS: BP 123/75
--- NOTE | 2018-05-14 08:30 | NUR ---
Customer Service Rep in to see patient. She is from [facility] and will return there upon discharge. kit planner following.
--- NOTE | 2018-05-14 09:07 | NUR ---
Called Dr. Lozada because patient is currently on Metoprolol ER and it can not be crushed. Per Dr. Lozada, talk to the pharmacist and change med to their recommendation. See new orders.
--- NOTE | 2018-05-14 10:55 | NUR ---
Nutritional Support Services Note: Pt with recent peg tube. Ht.5'3 Wt.123# IBW [phone]. She is at appropriate wt for ht at this time. She requires appro. 1400cal daily to maintain current wt. TF currently Osmolite at 20cc/hr. Tf needs advanced to 60cc/hr. Will provide pt with 1440cc/1440cal daily. She requires 1677cc of fluid daily- TF will provide pt with 1300cc of fluid daily, she will need an additionl 400cc of fluid daily. Monitor for tolerance of TF. Will follow as needed. Mily Bowers Rdn Ld
[2018-05-14 12:00] VITALS: BP 124/72
[2018-05-14 16:00] VITALS: BP 135/86
[2018-05-14 20:00] VITALS: BP 148/75
[2018-05-15] VITALS: BP 127/62
--- NOTE | 2018-05-15 04:27 | NUR ---
24 HR chart check completed.
--- NOTE | 2018-05-15 07:34 | NUR ---
Clinical updates faxed to [facility], notified facility of new peg tube and diet. Patient can return when medically stable for discharge.
[2018-05-15 08:00] VITALS: BP 120/84
--- NOTE | 2018-05-15 09:00 | NUR ---
Cotton Classer Aide in to see patient. She is from [facility] and will return there upon discharge. assortment planner following.
--- NOTE | 2018-05-15 09:10 | NUR ---
PT RESTING IN BED NO DISTRESS NOTED./ FAMILY AT BEDSIDE WILL MONITOR
[2018-05-15 12:00] VITALS: BP 119/61
[2018-05-15 13:55] LABS: BUN 10 mg/dl (7-24); CHLORIDE 103 mmol/L (98-107); CREATININE 0.38 mg/dL (0.55-1.02); PHOSPHOROUS 2.3 mg/dL (2.5-4.9); SODIUM 138 mmol/L (136-145)
[2018-05-15 16:00] VITALS: BP 106/58
[2018-05-15 20:00] VITALS: BP 132/69
[2018-05-16] VITALS: BP 134/72
--- NOTE | 2018-05-16 06:12 | NUR ---
SOMMER GRANDA [id number] Please refer to the physician's history and physical for past medical history, comorbid conditions, and allergies. Diagnosis: UTI GI BLEED METABOLIC ENCEPHALOPATHY CONFUSION Khai Score: 13,MODERATE RISK WOUND DESCRIPTIONS: Patient coccyx is red and blanchable at time of assessment. No open areas noted to coccyx at time of assessment. No drainage at time of assessment. Patient incontient of stool at time of assessment and pericare was provided at this time. Bilateral heels are red and blanchable at time of assessment. No open areas noted at this time to bilateral heels. No drainge note at time of assessment to bilateral heels. Surface the patient is resting on: Position Pro SKIN PREVENTION RECOMMENDATION: 1. Pressure redistribution support surface as appropriate 2. Elevate heels 3. Remove boots/TEDS every shift and reapply 4. Head of bed 30 degrees as tolerated 5. Assess nutrition and hydration 6. Manage moisture 7. Avoid the use of containment devices while in bed 8. Use absorptive products on surfaces limit layers of linens on bed 9. Turn and reposition every 1-2 hours in bed and every 1 hour in chair as tolerated 10. Weight shifts every 15 minutes while up in chair 11. Offloading with pillows or device to keep heels elevated off bed 12. Monitor skin at least every shift 13. Inspect under medical devices twice a day WOUND TREATMENT RECOMMENDATIONS: Continue current treatments.
[2018-05-16 06:24] LABS: HEMATOCRIT 34.7 % (37.0-47.0); HEMOGLOBIN 11.3 g/dl (12.0-16.0); MEAN CELL VOLUME 90.4 fl (81.0-99.0); MEAN CORPUSCULAR HGB 29.4 pg (27.0-31.0); MEAN CORPUSCULAR HGB CONC 32.6 g/dl (33.0-37.0); PLATELET COUNT AUTOMATED 324 10*3/uL (130-400); RED BLOOD COUNT 3.84 10*6/uL (4.10-5.10); RED CELL DISTRI WIDTH 14.3 % (0-14.5); WHITE BLOOD COUNT 9.5 10*3/uL (4.8-10.8)
--- NOTE | 2018-05-16 06:34 | NUR ---
24 HR chart check completed.
[2018-05-16 07:04] LABS: ALBUMIN 2.1 gm/dl (3.1-4.5); ALKALINE PHOSPHATASE 82 U/L (45-117); BUN 11 mg/dl (7-24); CHLORIDE 102 mmol/L (98-107); CREATININE 0.37 mg/dL (0.55-1.02); POTASSIUM 2.7 mmol/L (3.5-5.1); SGOT/AST 14 IU/L (3-35); SGPT/ALT 10 U/L (12-78); SODIUM 137 mmol/L (136-145); TOTAL PROTEIN 5.9 gm/dL (6.4-8.2)
--- NOTE | 2018-05-16 07:21 | NUR ---
Patient comes from [place], ok to return when medically stable for discharge.
[2018-05-16 08:00] VITALS: BP 113/68
[2018-05-16 08:07] LABS: TOTAL CELLS COUNTED 100 #CELLS
[2018-05-16 08:08] LABS: PLATELET SUFFICIENCY NORMAL (NORMAL); POLYCHROMASIA SLIGHT; ROULEAUX SLIGHT; TOXIC GRANULATION SLIGHT
--- NOTE | 2018-05-16 09:00 | NUR ---
Fish Egg Packer in to see patient. She is from [facility] and will return there upon discharge. train planner following.
--- NOTE | 2018-05-16 09:13 | NUR ---
PT RESTING IN BED. NO DISTRESS NOTED/ WILL MONITOR
[2018-05-16 12:00] VITALS: BP 134/74
[2018-05-16 16:00] VITALS: BP 116/73
[2018-05-16 20:00] VITALS: BP 118/70
[2018-05-17] VITALS: BP 102/55
[2018-05-17 06:32] LABS: BUN 12 mg/dl (7-24); CHLORIDE 105 mmol/L (98-107); CREATININE 0.45 mg/dL (0.55-1.02); POTASSIUM 3.6 mmol/L (3.5-5.1); SODIUM 138 mmol/L (136-145)
[2018-05-17 08:00] VITALS: BP 142/84
--- NOTE | 2018-05-17 08:00 | NUR ---
PT RESTING IN BED. NO DISTRESS NOTED. WILL MONITOR
[2018-05-17 12:00] VITALS: BP 118/69
[2018-05-17 16:00] VITALS: BP 119/66
[2018-05-17 20:00] VITALS: BP 125/74
[2018-05-18] VITALS: BP 119/78
[2018-05-18 08:00] VITALS: BP 116/64; BP 118/72
[2018-05-18 12:00] VITALS: BP 112/60
--- NOTE | 2018-05-18 12:00 | NUR ---
PATIENT HAS MINIMAL VERBAL RESPONSE. PT RESPONDING WITH A BARELY AUDIBLE "YEAH" TO ALL QUESTIONS. PATIENT WILL NOT MOVE LIMBS WHEN ASKED. DOES NOT APPEAR TO BE IN ANY DISTRESS. PEG TUBE PLACEMENT VERIFIED WITH AIR BOLUS, TUBE FEED INFUSING PER ORDER. PT TOELRATING WELL. PT TURNED AND REPOSITIONED EVERY 2 HRS AND CALAZIME CREAM FREQUENTLY APPLIED TO BUTTOCKS.
[2018-05-18 16:00] VITALS: BP 116/75
[2018-05-18 20:00] VITALS: BP 115/78
[2018-05-19] VITALS: BP 111/58
--- NOTE | 2018-05-19 04:26 | NUR ---
24 HR chart check completed.
--- NOTE | 2018-05-19 07:20 | NUR ---
PT ASLEEP IN BED. SHE IS LYING ON HER LEFT SIDE AND REFUSING TO BE REPOSITIONED AT THIS TIME. PATIENT IS UNRESPONSIVE TO VERBAL COMMANDS BUT WILL AROUSE MINIMALLY WITH MOVEMENT. BED ALARM ON, WILL CONTINUE TO MONITOR.
--- NOTE | 2018-05-19 09:00 | NUR ---
Chief Dispatcher in to see patient. She is from [facility] and will return there upon discharge. facility planner following.
[2018-05-19 12:00] VITALS: BP 123/72
[2018-05-19 16:00] VITALS: BP 125/74
--- NOTE | 2018-05-19 19:23 | NUR ---
PT PULLED PEG TUBE OUT. DR LOPEZ CALLED AND RECIEVED ORDERS TO PLACE A TERRELL CATHETER IN IT UNTIL MORNING. WILL CONTINUE TO MONITOR.
--- NOTE | 2018-05-19 19:34 | NUR ---
TERRELL PLACED IN PEG TUBE SITE PER DR LOPEZ ORDER
[2018-05-19 20:00] VITALS: BP 120/65
--- NOTE | 2018-05-19 21:56 | NUR ---
PATIENT RESTING IN BED WITH NO S/S OF DISTRESS. TERRELL IN PLACE IN PEG TUBE SITE, DRAINING WITHOUT DIFFICULTY. RESPIRATIONS EASY AND REGULAR. BED ALARM ON, BED IN LOWEST POSITION, CALL LIGHT IN REACH
[2018-05-20] VITALS: BP 119/71
--- NOTE | 2018-05-20 00:50 | NUR ---
24 HR chart check completed.
[2018-05-20 06:14] LABS: HEMATOCRIT 35.2 % (37.0-47.0); HEMOGLOBIN 11.6 g/dl (12.0-16.0); MEAN CELL VOLUME 92.6 fl (81.0-99.0); MEAN CORPUSCULAR HGB 30.5 pg (27.0-31.0); MEAN PLATELET VOLUME 8.9 fl (9.6-12.3); PLATELET COUNT AUTOMATED 498 10*3/uL (130-400); RED CELL DISTRI WIDTH 14.7 % (0-14.5)
[2018-05-20 06:42] LABS: ALBUMIN 2.3 gm/dl (3.1-4.5); BUN 15 mg/dl (7-24); CHLORIDE 104 mmol/L (98-107); POTASSIUM 3.5 mmol/L (3.5-5.1); SODIUM 141 mmol/L (136-145)
[2018-05-20 06:45] LABS: ALKALINE PHOSPHATASE 72 U/L (45-117); CREATININE 0.41 mg/dL (0.55-1.02); SGOT/AST 15 IU/L (3-35); SGPT/ALT 13 U/L (12-78); TOTAL PROTEIN 6.2 gm/dL (6.4-8.2)
[2018-05-20 07:10] LABS: PLATELET SUFFICIENCY HIGH (NORMAL); TOTAL CELLS COUNTED 100 #CELLS
[2018-05-20 08:00] VITALS: BP 116/72
--- NOTE | 2018-05-20 09:00 | NUR ---
Tail Dogger in to see patient. She is from [facility] and will return there upon discharge. production planner following.
--- NOTE | 2018-05-20 10:42 | NUR ---
PHYSICAL THERAPY PAtient is discharged. Thank you for this referral. Gloria Reinoso,PT
--- NOTE | 2018-05-20 11:40 | NUR ---
Clinical updates faxed to [facility] for review, notified of probable discharge today. Patient is assisted care and can return when medically stable for discharge.
[2018-05-20 12:00] VITALS: BP 112/66
--- NOTE | 2018-05-20 15:01 | NUR ---
SPOKE TO DR LOPEZ REGARDING PT AND HE GAVE NEW ORDERS FOR [place] TOMORROW FOR SHALA TUBE PLACEMENT AND X-RAY OF THE ABD NOW TO VERIFY PLACEMENT THEN TO CALL HIM BACK WITH RESULTS.
[2018-05-20 16:00] VITALS: BP 113/73
--- NOTE | 2018-05-20 17:14 | NUR ---
REPORTED XRAY RESULTS TO DR LOPEZ. NEW ORDERS FOR D5 NS AT 85CC/HR .
--- NOTE | 2018-05-20 19:20 | NUR ---
PT AWAKE AND LYING IN BED. REPORT RECIEVED FROM YODIT KING. PT IS NOT RESPONDING TO QUESTIONS, BUT IS AWAKE AND VISIBLY AWARE OF HER SURROUNDINGS. BED ALARM ON, WILL CONTINUE TO MONITOR.
--- NOTE | 2018-05-20 20:00 | NUR ---
PT REFUSING TO ALLOW VITAL SIGNS TO BE OBTAINED AT THIS TIME. WILL CONTINUE TO MONITOR.
--- NOTE | 2018-05-20 20:35 | NUR ---
24 HR CHART CHECK COMPLETE.
[2018-05-21] VITALS (8 sets, daily range): BP systolic 104–130; BP diastolic 56–71
[2018-05-21 06:22] LABS: BASO # 0.1 10*3/uL (0.0-0.1); BASO % 1.3 % (0.0-1.0); EOS # 0.4 10*3/uL (0.0-0.4); EOS % 3.9 % (1.0-4.0); HEMATOCRIT 35.8 % (37.0-47.0); HEMOGLOBIN 11.3 g/dl (12.0-16.0); LYMPH # 1.2 10*3/uL (1.3-4.4); LYMPH % 12.8 % (27.0-41.0); MEAN CELL VOLUME 95.5 fl (81.0-99.0); MEAN CORPUSCULAR HGB 30.1 pg (27.0-31.0); MEAN CORPUSCULAR HGB CONC 31.6 g/dl (33.0-37.0); MEAN PLATELET VOLUME 8.9 fl (9.6-12.3); MONO # 0.6 10*3/uL (0.1-1.0); MONO % 6.9 % (3.0-9.0); NEUT # 6.7 10*3/uL (2.3-7.9); NEUT % 72.5 % (47.0-73.0); PLATELET COUNT AUTOMATED 503 10*3/uL (130-400); RED BLOOD COUNT 3.75 10*6/uL (4.10-5.10); WHITE BLOOD COUNT 9.2 10*3/uL (4.8-10.8)
[2018-05-21 06:39] LABS: ALBUMIN 2.2 gm/dl (3.1-4.5); ALKALINE PHOSPHATASE 68 U/L (45-117); BUN 16 mg/dl (7-24); CHLORIDE 108 mmol/L (98-107); CREATININE 0.53 mg/dL (0.55-1.02); PHOSPHOROUS 3.2 mg/dL (2.5-4.9); POTASSIUM 3.3 mmol/L (3.5-5.1); SGOT/AST 12 IU/L (3-35); SGPT/ALT 11 U/L (12-78); SODIUM 146 mmol/L (136-145); TOTAL PROTEIN 6.4 gm/dL (6.4-8.2)
--- NOTE | 2018-05-21 09:00 | NUR ---
Burner Machine Operator in to see patient. She is from [facility] and will return there upon discharge. raw material planner following.
--- NOTE | 2018-05-21 09:41 | NUR ---
Updated clinicals faxed to [facility] for review per request. patient is ok to return when medically stable for discharge.
--- NOTE | 2018-05-21 13:45 | NUR ---
PT RETURNED FROM SURGERY
--- NOTE | 2018-05-21 13:49 | NUR ---
SPOKE TO DR LOPEZ NEW ORDERS RECEIVED.
--- NOTE | 2018-05-21 18:33 | NUR ---
GOLF COURSE ARCHITECT CALLED AND STATED PT WAS OFF MONITOR. UPON CHECK ON PT SHE WAS IN THE PROCESS OF ATTEMPTING TO PULL OUT HER PEG TUBE AGAIN. SHE HAD SOME OF HER MONITOR LEADS PULLED OFF, HER ABDOMINAL BINDER OFF AND SHE HAD THE PEG TUBE IN HER HAND. PT WAS CHANGED, RESPOSTITIONED, NEW ABD BINDER PUT IN PLACE AND ERIK CARE DONE. WILL CONT TO MONITOR PT CLOSELY.
--- NOTE | 2018-05-21 22:58 | NUR ---
PATIENT AT THIS TIME RESPONDS TO VERBAL STIMULI. PATIENT OPENS HER EYES AND MUMBLES. NO SIGNS OF DISTRESS. RESPIRATIONS EASY. TUBE FEEDING GOING AT 30ML/HR. VITALS WNL. BED IN LOWEST POSITION, CALL LIGHT WITHIN REACH. BED ALARM ON. WILL CONTINUE TO MONITOR.
[2018-05-22] VITALS: BP 122/63
[2018-05-22 06:10] LABS: BASO # 0.1 10*3/uL (0.0-0.1); BASO % 1.5 % (0.0-1.0); EOS # 0.3 10*3/uL (0.0-0.4); EOS % 4.2 % (1.0-4.0); HEMATOCRIT 34.9 % (37.0-47.0); HEMOGLOBIN 10.6 g/dl (12.0-16.0); LYMPH # 1.2 10*3/uL (1.3-4.4); LYMPH % 14.4 % (27.0-41.0); MEAN CELL VOLUME 96.7 fl (81.0-99.0); MEAN CORPUSCULAR HGB 29.4 pg (27.0-31.0); MEAN CORPUSCULAR HGB CONC 30.4 g/dl (33.0-37.0); MEAN PLATELET VOLUME 8.9 fl (9.6-12.3); MONO # 0.5 10*3/uL (0.1-1.0); MONO % 6.4 % (3.0-9.0); NEUT # 5.8 10*3/uL (2.3-7.9); NEUT % 71.8 % (47.0-73.0); PLATELET COUNT AUTOMATED 463 10*3/uL (130-400); RED BLOOD COUNT 3.61 10*6/uL (4.10-5.10); RED CELL DISTRI WIDTH 15.4 % (0-14.5)
[2018-05-22 06:43] LABS: ALBUMIN 2.1 gm/dl (3.1-4.5); ALKALINE PHOSPHATASE 78 U/L (45-117); BUN 15 mg/dl (7-24); CHLORIDE 112 mmol/L (98-107); CREATININE 0.55 mg/dL (0.55-1.02); PHOSPHOROUS 3.1 mg/dL (2.5-4.9); SGOT/AST 14 IU/L (3-35); SGPT/ALT 14 U/L (12-78); SODIUM 149 mmol/L (136-145)
--- NOTE | 2018-05-22 09:00 | NUR ---
Surgical Forceps Fabricator in to see patient. She is from [facility] and will return there upon discharge. business planner following.
[2018-05-22 12:00] VITALS: BP 145/75
[2018-05-22 16:00] VITALS: BP 134/70
[2018-05-22 16:52] LABS: ALBUMIN 2.1 gm/dl (3.1-4.5); ALKALINE PHOSPHATASE 73 U/L (45-117); BUN 14 mg/dl (7-24); CHLORIDE 114 mmol/L (98-107); POTASSIUM 3.4 mmol/L (3.5-5.1); SGOT/AST 15 IU/L (3-35); SGPT/ALT 14 U/L (12-78); SODIUM 149 mmol/L (136-145)
[2018-05-22] MEDS ORDERED: FLUCONAZOLE100 MG PO (18:15)
[2018-05-22] MEDS ORDERED: VANCOCIN125 M1 PO (18:15)
--- NOTE | 2018-05-22 18:30 | NUR ---
CALLED DR MCFADDEN ABOUT BP. NEW ORDERS RECEIVED.
--- NOTE | 2018-05-22 19:28 | NUR ---
Discharge instructions reviewed with patient/family. Patient receptive and verbalizes understanding. Follow-up care arranged. Written instructions given to patient/family. PATIENT TAKEN FROM UNIT BY AMBULANCE SERVICE. NO S/S OF DISTRESS. JOSEE ALMENDAREZ
--- NOTE | 2018-05-22 19:34 | NUR ---
REPORT CALLED TO MAUDE ALVAREZ [facility].
[2018-07-17] MEDS ORDERED: ISOSOURCE 1.51000 M1 PO (08:12)
== END 2018-05-22 19:28 | disposition other institution (70) | DRG 377 ==
LOC: ED 15:46 → 4E 17:20 → EDHOLD 17:20 → 4E 17:39
PROVIDERS: Internal Medicine; Internal Medicine Nephrology; Nurse Practitioner Family; Student in an Organized Health Care Education/Training Program; ADMIT Internal Medicine
PROC: 0DH63UZ Insertion of Feeding Device into Stomach, Percutaneous Approach (ICD-10-PCS; principal; 2018-05-12)
PROC: 0D20XUZ Change Feeding Device in Upper Intestinal Tract, External Approach (ICD-10-PCS; 2018-05-21)
DX: K29.71 Gastritis, unspecified, with bleeding (principal); G93.41 Metabolic encephalopathy; E43 Unspecified severe protein-calorie malnutrition; N13.6 Pyonephrosis; A04.72 Enterocolitis due to Clostridium difficile, not specified as recurrent; N20.2 Calculus of kidney with calculus of ureter; E87.0 Hyperosmolality and hypernatremia; R31.9 Hematuria, unspecified; L98.9 Disorder of the skin and subcutaneous tissue, unspecified; R62.7 Adult failure to thrive; E87.6 Hypokalemia; I10 Essential (primary) hypertension; R13.19 Other dysphagia; K76.0 Fatty (change of) liver, not elsewhere classified; K44.9 Diaphragmatic hernia without obstruction or gangrene; R11.10 Vomiting, unspecified; K21.9 Gastro-esophageal reflux disease without esophagitis; D64.9 Anemia, unspecified; R73.9 Hyperglycemia, unspecified; E86.0 Dehydration; F03.90 Unspecified dementia, unspecified severity, without behavioral disturbance, psychotic disturbance, mood disturbance, and anxiety; Z96.649 Presence of unspecified artificial hip joint; Z80.9 Family history of malignant neoplasm, unspecified; Z81.1 Family history of alcohol abuse and dependence; Z68.21 Body mass index [BMI] 21.0-21.9, adult

== ENCOUNTER 2018-06-05 21:02 | Inpatient (IN) | payer MEDICARE, OTHER ==
[~2018-06-05] VITALS: Ht 170.2 cm; Wt 46.9 kg
--- NOTE | ~2018-06-05 | PR ---
[place], [place] PROGRESS NOTE [id number] #: [id number] ROOM: 422 DOCTOR: JORGE ALBERTO LOPEZ MD BIRTHDATE: [birth year] DOS: GASTROENDOSCOPIC PROGRESS NOTE HISTORY OF PRESENT ILLNESS: This 78-year-old patient who is with lethargy, neurogenic dysphagia, status post PEG tube placement, PEG tube migration as well eventually last night, the PEG has been pulled out entirely. A substitute Delgado catheter has been placed. Subsequently, it has been changed to gastrostomy tube by Dr. Cary. PAST MEDICAL HISTORY: The patient with gastroesophageal reflux, metabolic encephalopathy, systemic hypertension, anemia, fatty liver, and dementia. PAST SURGICAL HISTORY: As dictated PEG tube. REVIEW OF SYSTEMS: Cannot be obtained from her. PHYSICAL EXAMINATION: VITAL SIGNS: Stable. HEENT: Benign. NECK: Supple, no thyromegaly. CHEST: Symmetric anatomy, equal expansion. HEART: Normal sinus rhythm, no gallop, no murmur. ABDOMEN: Soft. No hepato-organomegaly. PEG tube was noticed. Additional strap was added around the dish of the PEG to prevent migration and ending up the same dysfunctionality. EXTREMITIES: No cyanosis, no pedal edema. NEUROLOGIC: Alert. Disoriented. LABORATORY DATA: Reviewed. Records reviewed. Hypernatremic, hyperchloremia was noticed, magnesium of 2.7 with phosphorus of 3.4 was noticed. Blood cultures negative. CBC differential, white blood cell 14, H and H of 11 and 37, platelets of 470+ was noticed. Urinalysis unremarkable. C. diff negative. IMPRESSION: Neurogenic dysphagia, status post malfunctioning tube, status post exchange, status post addition of a safety strap around the dish of the PEG tube today, hypernatremic and hyperchloremia. PLAN AND DISCUSSION: Free water flush is going to be done adequately to overcome dehydration that she is suffering. She does not need a peripheral line with the existing PEG tube, we unable to hydrate her adequately. Labs reviewed, records reviewed. [place], [place] PROGRESS NOTE [facility]: [id number] UNIT #: [id number] ROOM: 422 DOCTOR: TEJINDER LOPEZ MD BIRTHDATE: [birth year] JORGE ALBERTO LOPEZ MD CM:PNTRANS [id number] JORGE ALBERTO LOPEZ MD 06/09/18 0609 interface
--- NOTE | ~2018-06-05 | CON ---
[place], [place] REPORT OF CONSULTATION NAME: SOMMER GRANDA UNIT #: [id number] ROOM: 422 DOCTOR: JORGE ALBERTO LOPEZ MD BIRTHDATE: [birth year] DOS: 06/06/2018 HISTORY OF PRESENT ILLNESS: A 78-year-old who has presented from group home with multiple medical problems, among which has been leaking of the PEG tube and difficulty with infusion according to the nurse. PEG was fixed at the bedside in the presence of RN. The patient is DNR. I have reviewed her records and chart has been dictated in the past. PAST MEDICAL HISTORY: Dementia, diarrhea, ____, gastroesophageal reflux, metabolic encephalopathy, systemic hypertension, anemia, and fatty liver. PAST SURGICAL HISTORY: Records have been reviewed. SOCIAL HISTORY: Nonsmoker, nonalcohol consumer. Resides in group home. FAMILY HISTORY: Noncontributory. ALLERGIES: No known medications. MEDICATIONS: List was reviewed. REVIEW OF SYSTEMS: A noncommunicating. Therefore, no meaningful data available. PHYSICAL EXAMINATION: VITAL SIGNS: Frail patient. HEENT: Within normal limits. NECK: Supple, no thyromegaly. CHEST: Symmetric anatomy. Few scattered rhonchi. HEART: Normal sinus rhythm, no gallop, no murmur. ABDOMEN: Soft. No hepato-organomegaly. Bowel sounds present. EXTREMITIES: No cyanosis, no pedal edema. NEUROLOGIC: Alert and disoriented. LABORATORY DATA: Reviewed, records reviewed. IMPRESSION: Malfunctioning PEG tube, which was fixed at the bedside in the presence of RN and management was directed. PLAN AND DISCUSSION: The PEG tube is functional, infusing now to be utilized for the purposes of feeding and medication. [place], [place] REPORT OF CONSULTATION NAME: SOMMER GRANDA UNIT #: [id number] ROOM: 422 DOCTOR: JORGE ALBERTO LOPEZ MD BIRTHDATE: [birth year] JORGE ALBERTO LOPEZ MD CM:CONSTR:REPORT OF CONSULTATION 1557 06/07/18 0659 interface
--- NOTE | ~2018-06-05 | EKG ---
[place], [place] ELECTROCARDIOGRAM REPORT NAME: SOMMER GRANDA UNIT #: [id number] ROOM: 422 DOCTOR: MARY DRAFT REPORT BIRTHDATE: [address] [facility] Test Date: 2018-06-05 Test Time: 21:44:48 Pat Name: SOMMER GRANDA Department: ER Room: 422 Gender: F Line Assigner: Jersey Champagne : 1940 Requested By: MARTINE HUERTAS Order Number: [id number] Reading MD: Lin Adam MD Measurements Intervals [place] Rate: 143 P: 71 VT: 106 QRS: 4 QRSD: 108 T: 78 QT: 313 QTc: 483 Interpretive Statements Sinus tachycardia Incomplete left bundle branch block Electronically Signed On 06-06-2018 13:49:54 PDT by Lin Adam MD CM:EKGRPT:ELECTROCARDIOGRAM REPORT [id number] MARTINE DICKSON DRAFT REPORT MARTINE HUERTAS DO
--- NOTE | ~2018-06-05 | PR ---
[place], [place] PROGRESS NOTE NAME: SOMMER GRANDA UNIT #: [id number] ROOM: 422 DOCTOR: MINA BECKER MD BIRTHDATE: [birth year] DOS: 06/08/2018 NEPHROLOGY FOLLOWUP NOTE SUBJECTIVE: The patient was seen and examined. She was awake. She was lying in bed. She was in restraints. It seems she was off IV fluids. She was in no acute distress. No events were noted. PHYSICAL EXAMINATION: VITAL SIGNS: Temperature 97.8, pulse 103, respiratory rate 20, blood pressure 127/93. HEENT: Shows no JVD. Sclerae are anicteric. LUNGS: Had diminished breath sounds with no wheeze. HEART: S1, S2. No rub, thrill or gallop. ABDOMEN: Soft, nontender. EXTREMITIES: Showed no edema. SKIN: Showed no rash. LABORATORY DATA: C. diff toxin was negative. Hemoglobin 10.4, white count 12.6, platelets 492. BUN 38, creatinine 0.47, sodium 156, potassium 3.1, CO2 of 25, magnesium 2.7, phosphorus 3.6, calcium 9.8 and albumin 2.0. ASSESSMENT AND PLAN: 1. Hypernatremia. The patient has continued hypernatremia. I am not clear if she has been receiving IV fluids. Currently when I went to see her, they were off. We will continue D5W. Currently, the rate is at 70 mL per hour. This is reasonable for now; however, she likely will require something in the range of 100-125 mL per hour to correct her free water deficit. Would consider adding potassium to the IV fluids as well. Continue to supplement potassium as needed. Follow magnesium levels as well and correct any electrolyte deficiencies. 2. Azotemia. This should improving her hydration status. 3. Anemia. Follow H and H. Transfuse as needed. 4. Leukocytosis. Follow. [place], [place] PROGRESS NOTE NAME: SOMMER GRANDA UNIT #: [id number] ROOM: 422 DOCTOR: MINA BECKER MD BIRTHDATE: [birth year] MINA BECKER MD CM:PNTRANS [id number] 01 MINA BECKER MD 06/08/182300 interface
[~2018-06-05 21:02] MED LIST changes: +ALLERGY RELIEF180 MG PO; +ASCORBIC ACID500 M2 PO; +DULCOLAX10 M1 R; +FLUCONAZOLE100 MG PO; +LYRICA150 M1 PO; +OMEPRAZOLE20 M2 PO; +PAXIL10 MG PO; +PENTOXIFYL XR400 MG PO; +TOPROL XL50 M1 PO; +VALIUM5 MG PO; +VANCOCIN125 M1 PO; +VITAMIN D32000 UNI1 PO; +[UNRECOGNIZED DRUG - OTHER] PO
[2018-06-05 21:10] VITALS: BP 104/66
[2018-06-05 21:36] LABS: HEMOGLOBIN 12.3 g/dl (12.0-16.0); MEAN CELL VOLUME 96.4 fl (81.0-99.0); MEAN CORPUSCULAR HGB 29.6 pg (27.0-31.0); MEAN CORPUSCULAR HGB CONC 30.8 g/dl (33.0-37.0); MEAN PLATELET VOLUME 9.7 fl (9.6-12.3); NUCLEATED RED BLOOD CELL 0.2 10*3/uL (0.0-0.0); NUCLEATED RED BLOOD CELL 0.6 % (0.0-0.0); PLATELET COUNT AUTOMATED 825 10*3/uL (130-400); RED BLOOD COUNT 4.15 10*6/uL (4.10-5.10); RED CELL DISTRI WIDTH 16.2 % (0-14.5)
[2018-06-05 21:57] LABS: TOTAL CELLS COUNTED 100 #CELLS
[2018-06-05 21:58] LABS: PLATELET SUFFICIENCY HIGH (NORMAL); STOMATOCYTE FEW
[2018-06-05 22:00] LABS: ALBUMIN 2.1 gm/dl (3.1-4.5); ALKALINE PHOSPHATASE 160 U/L (45-117); BUN 58 mg/dl (7-24); CHLORIDE 121 mmol/L (98-107); CREATININE 0.96 mg/dL (0.55-1.02); POTASSIUM 4.5 mmol/L (3.5-5.1); SGOT/AST 42 IU/L (3-35); SGPT/ALT 41 U/L (12-78); SODIUM 157 mmol/L (136-145); TOTAL PROTEIN 8.6 gm/dL (6.4-8.2)
[2018-06-05 22:03] LABS: TROPONIN I < 0.015 ng/ml (<0.045)
[2018-06-05 22:08] LABS: ACT PARTIAL THROMBO TIME 22.5 SECONDS (20.8-31.5); INTERNATIONAL NORM RATIO 1.1 (2.0-3.5)
[2018-06-05 22:57] LABS: BILIRUBIN NEGATIVE (NEGATIVE); BLOOD 3+ (NEGATIVE); CLARITY CLOUDY (CLEAR); COLOR YELLOW (YELLOW); GLUCOSE NEGATIVE (NEGATIVE); KETONE NEGATIVE (NEGATIVE); LEUKO ESTERASE 2+ (NEGATIVE); NITRITE NEGATIVE (NEGATIVE); UROBILINOGEN 0.2 E.U./dl (0.2-1.0)
[2018-06-05 23:29] LABS: BACTERIA 2+; EPITHELIAL CELLS 0-2; MUCOUS TRACE; RBC TNTC rbc/hpf (0-2); WBC TNTC wbc/hpf (0-5)
[2018-06-06] VITALS: BP 98/65
[2018-06-06 00:30] VITALS: BP 98/65
[2018-06-06] MEDS ORDERED: [UNRECOGNIZED DRUG - CODE] PF (01:07)
[2018-06-06 01:52] LABS: HEMOGLOBIN 11.3 g/dl (12.0-16.0); MEAN CELL VOLUME 97.4 fl (81.0-99.0); MEAN CORPUSCULAR HGB 29.7 pg (27.0-31.0); MEAN CORPUSCULAR HGB CONC 30.5 g/dl (33.0-37.0); MEAN PLATELET VOLUME 9.6 fl (9.6-12.3); NUCLEATED RED BLOOD CELL 0.1 10*3/uL (0.0-0.0); NUCLEATED RED BLOOD CELL 0.5 % (0.0-0.0); PLATELET COUNT AUTOMATED 648 10*3/uL (130-400); RED CELL DISTRI WIDTH 16.2 % (0-14.5); WHITE BLOOD COUNT 21.7 10*3/uL (4.8-10.8)
[2018-06-06 02:02] LABS: ALBUMIN 1.8 gm/dl (3.1-4.5); ALKALINE PHOSPHATASE 125 U/L (45-117); BUN 56 mg/dl (7-24); CHLORIDE 124 mmol/L (98-107); CREATININE 0.91 mg/dL (0.55-1.02); POTASSIUM 4.3 mmol/L (3.5-5.1); SGOT/AST 32 IU/L (3-35); SGPT/ALT 32 U/L (12-78); SODIUM 158 mmol/L (136-145); TOTAL PROTEIN 7.1 gm/dL (6.4-8.2)
[2018-06-06 02:12] LABS: PLATELET SUFFICIENCY HIGH (NORMAL); POLYCHROMASIA SLIGHT; TOTAL CELLS COUNTED 100 #CELLS
[2018-06-06 05:58] LABS: HEMATOCRIT 34.6 % (37.0-47.0); HEMOGLOBIN 10.4 g/dl (12.0-16.0); MEAN CELL VOLUME 98.3 fl (81.0-99.0); MEAN CORPUSCULAR HGB 29.5 pg (27.0-31.0); MEAN CORPUSCULAR HGB CONC 30.1 g/dl (33.0-37.0); MEAN PLATELET VOLUME 9.9 fl (9.6-12.3); NUCLEATED RED BLOOD CELL 0.1 10*3/uL (0.0-0.0); NUCLEATED RED BLOOD CELL 0.3 % (0.0-0.0); PLATELET COUNT AUTOMATED 605 10*3/uL (130-400); RED BLOOD COUNT 3.52 10*6/uL (4.10-5.10); RED CELL DISTRI WIDTH 16.2 % (0-14.5); WHITE BLOOD COUNT 20.8 10*3/uL (4.8-10.8)
[2018-06-06 06:10] LABS: ALBUMIN 1.8 gm/dl (3.1-4.5); ALKALINE PHOSPHATASE 117 U/L (45-117); BUN 58 mg/dl (7-24); CHLORIDE 123 mmol/L (98-107); CREATININE 0.79 mg/dL (0.55-1.02); POTASSIUM 4.2 mmol/L (3.5-5.1); SGOT/AST 30 IU/L (3-35); SGPT/ALT 31 U/L (12-78); SODIUM 158 mmol/L (136-145); TOTAL PROTEIN 6.6 gm/dL (6.4-8.2)
[2018-06-06 06:15] LABS: PHOSPHOROUS 4.4 mg/dL (2.5-4.9)
[2018-06-06 06:16] LABS: INTERNATIONAL NORM RATIO 1.1 (2.0-3.5)
[2018-06-06 07:22] LABS: PLATELET SUFFICIENCY HIGH (NORMAL); POLYCHROMASIA SLIGHT; TOTAL CELLS COUNTED 100 #CELLS
[2018-06-06 07:23] LABS: TOXIC GRANULATION SLIGHT
[2018-06-06 08:00] VITALS: BP 93/68
[2018-06-06 12:00] VITALS: BP 104/71
[2018-06-06 16:00] VITALS: BP 101/71
[2018-06-06 20:00] VITALS: BP 97/59
[2018-06-06 21:43] LABS: CHLORIDE 122 mmol/L (98-107); POTASSIUM 3.9 mmol/L (3.5-5.1); SODIUM 155 mmol/L (136-145)
[2018-06-06 21:56] LABS: BUN 48 mg/dl (7-24)
[2018-06-07] VITALS: BP 104/67
[2018-06-07 07:21] LABS: HEMATOCRIT 37.3 % (37.0-47.0); HEMOGLOBIN 11.1 g/dl (12.0-16.0); MEAN CELL VOLUME 97.6 fl (81.0-99.0); MEAN CORPUSCULAR HGB 29.1 pg (27.0-31.0); MEAN CORPUSCULAR HGB CONC 29.8 g/dl (33.0-37.0); MEAN PLATELET VOLUME 10.2 fl (9.6-12.3); NUCLEATED RED BLOOD CELL 0.2 % (0.0-0.0); PLATELET COUNT AUTOMATED 479 10*3/uL (130-400); RED BLOOD COUNT 3.82 10*6/uL (4.10-5.10); RED CELL DISTRI WIDTH 15.8 % (0-14.5); WHITE BLOOD COUNT 14.7 10*3/uL (4.8-10.8)
[2018-06-07 07:30] LABS: ALBUMIN 1.8 gm/dl (3.1-4.5); ALKALINE PHOSPHATASE 143 U/L (45-117); BUN 44 mg/dl (7-24); CHLORIDE 121 mmol/L (98-107); CREATININE 0.66 mg/dL (0.55-1.02); PHOSPHOROUS 3.4 mg/dL (2.5-4.9); POTASSIUM 3.5 mmol/L (3.5-5.1); SGOT/AST 43 IU/L (3-35); SGPT/ALT 38 U/L (12-78); SODIUM 155 mmol/L (136-145); TOTAL PROTEIN 7.1 gm/dL (6.4-8.2)
[2018-06-07 07:46] LABS: TOTAL CELLS COUNTED 100 #CELLS
[2018-06-07 07:47] LABS: PLATELET SUFFICIENCY HIGH (NORMAL); POLYCHROMASIA SLIGHT; TOXIC GRANULATION SLIGHT
[2018-06-07 08:00] VITALS: BP 108/66
[2018-06-07 12:00] VITALS: BP 108/65
[2018-06-07 16:00] VITALS: BP 108/67
[2018-06-07 20:00] VITALS: BP 111/68
[2018-06-08] VITALS: BP 108/66
[2018-06-08 08:00] VITALS: BP 110/63
[2018-06-08 08:13] LABS: ALKALINE PHOSPHATASE 126 U/L (45-117); BUN 38 mg/dl (7-24); CHLORIDE 123 mmol/L (98-107); CREATININE 0.47 mg/dL (0.55-1.02); PHOSPHOROUS 3.6 mg/dL (2.5-4.9); POTASSIUM 3.1 mmol/L (3.5-5.1); SGOT/AST 30 IU/L (3-35); SGPT/ALT 34 U/L (12-78); SODIUM 156 mmol/L (136-145)
[2018-06-08 08:45] LABS: BASO % 0.2 % (0.0-1.0); EOS % 0.1 % (1.0-4.0); HEMATOCRIT 33.3 % (37.0-47.0); HEMOGLOBIN 10.4 g/dl (12.0-16.0); LYMPH # 0.6 10*3/uL (1.3-4.4); LYMPH % 4.7 % (27.0-41.0); MEAN CELL VOLUME 95.4 fl (81.0-99.0); MEAN CORPUSCULAR HGB 29.8 pg (27.0-31.0); MEAN CORPUSCULAR HGB CONC 31.2 g/dl (33.0-37.0); MEAN PLATELET VOLUME 9.8 fl (9.6-12.3); MONO # 0.4 10*3/uL (0.1-1.0); MONO % 3.2 % (3.0-9.0); NEUT # 11.4 10*3/uL (2.3-7.9); NEUT % 89.7 % (47.0-73.0); NUCLEATED RED BLOOD CELL 0.2 % (0.0-0.0); PLATELET COUNT AUTOMATED 492 10*3/uL (130-400); RED BLOOD COUNT 3.49 10*6/uL (4.10-5.10); RED CELL DISTRI WIDTH 15.5 % (0-14.5); WHITE BLOOD COUNT 12.6 10*3/uL (4.8-10.8)
[2018-06-08 12:00] VITALS: BP 127/93
[2018-06-08 16:00] VITALS: BP 119/76
[2018-06-08 20:00] VITALS: BP 117/66
[2018-06-09] VITALS: BP 120/68
[2018-06-09 07:15] LABS: HEMATOCRIT 32.3 % (37.0-47.0); HEMOGLOBIN 9.7 g/dl (12.0-16.0); MEAN CELL VOLUME 97.3 fl (81.0-99.0); MEAN CORPUSCULAR HGB 29.2 pg (27.0-31.0); MEAN PLATELET VOLUME 10.5 fl (9.6-12.3); NUCLEATED RED BLOOD CELL 0.2 % (0.0-0.0); PLATELET COUNT AUTOMATED 468 10*3/uL (130-400); RED BLOOD COUNT 3.32 10*6/uL (4.10-5.10); RED CELL DISTRI WIDTH 15.9 % (0-14.5); WHITE BLOOD COUNT 12.8 10*3/uL (4.8-10.8)
[2018-06-09 07:34] LABS: BUN 33 mg/dl (7-24); CHLORIDE 121 mmol/L (98-107); CREATININE 0.66 mg/dL (0.55-1.02); PHOSPHOROUS 2.7 mg/dL (2.5-4.9); POTASSIUM 3.3 mmol/L (3.5-5.1); SODIUM 154 mmol/L (136-145)
[2018-06-09 08:00] VITALS: BP 147/83
[2018-06-09 08:11] LABS: PLATELET SUFFICIENCY HIGH (NORMAL); POLYCHROMASIA MODERATE; TOTAL CELLS COUNTED 100 #CELLS
[2018-06-09 12:00] VITALS: BP 136/68
[2018-06-09 16:00] VITALS: BP 147/68
[2018-06-09 19:21] LABS: BUN 25 mg/dl (7-24); CHLORIDE 113 mmol/L (98-107); SODIUM 146 mmol/L (136-145)
[2018-06-09 20:00] VITALS: BP 116/60
[2018-06-10] VITALS: BP 123/70
[2018-06-10 04:00] VITALS: BP 123/70
[2018-06-10 07:28] LABS: BUN 18 mg/dl (7-24); CHLORIDE 108 mmol/L (98-107); CREATININE 0.46 mg/dL (0.55-1.02); POTASSIUM 3.1 mmol/L (3.5-5.1); SODIUM 141 mmol/L (136-145)
[2018-06-10 08:00] VITALS: BP 154/70
[2018-06-10 12:00] VITALS: BP 146/62
[2018-06-10 16:00] VITALS: BP 161/61
[2018-06-10 17:35] LABS: BUN 14 mg/dl (7-24); CHLORIDE 110 mmol/L (98-107); CREATININE 0.46 mg/dL (0.55-1.02); POTASSIUM 3.2 mmol/L (3.5-5.1); SODIUM 140 mmol/L (136-145)
[2018-06-10 20:00] VITALS: BP 115/70
[2018-06-11] VITALS: BP 122/68
[2018-06-11 06:23] LABS: BUN 15 mg/dl (7-24); CHLORIDE 114 mmol/L (98-107); CREATININE 0.43 mg/dL (0.55-1.02); POTASSIUM 3.6 mmol/L (3.5-5.1); SODIUM 144 mmol/L (136-145)
[2018-06-11 06:52] LABS: HEMATOCRIT 29.6 % (37.0-47.0); HEMOGLOBIN 9.4 g/dl (12.0-16.0); MEAN CELL VOLUME 94.3 fl (81.0-99.0); MEAN CORPUSCULAR HGB 29.9 pg (27.0-31.0); MEAN CORPUSCULAR HGB CONC 31.8 g/dl (33.0-37.0); MEAN PLATELET VOLUME 10.4 fl (9.6-12.3); NUCLEATED RED BLOOD CELL 0.2 % (0.0-0.0); PLATELET COUNT AUTOMATED 382 10*3/uL (130-400); RED BLOOD COUNT 3.14 10*6/uL (4.10-5.10); RED CELL DISTRI WIDTH 15.5 % (0-14.5); WHITE BLOOD COUNT 15.3 10*3/uL (4.8-10.8)
[2018-06-11 06:56] LABS: PLATELET SUFFICIENCY NORMAL (NORMAL); POLYCHROMASIA SLIGHT; TOTAL CELLS COUNTED 100 #CELLS
[2018-06-11 08:00] VITALS: BP 103/57
[2018-06-11 12:00] VITALS: BP 100/60
[2018-06-11] MEDS ORDERED: LYRICA150 M1 PO (16:09)
[2018-06-11] MEDS ORDERED: VALIUM5 MG PO (16:09)
[2018-07-17] MEDS ORDERED: ISOSOURCE 1.51000 M1 PO (08:12)
== END 2018-06-11 15:35 | disposition other institution (70) | DRG 853 ==
LOC: ED 21:02 → 4E 23:37 → EDHOLD 23:37 → 4E 23:51
PROVIDERS: Family Medicine; Internal Medicine; Student in an Organized Health Care Education/Training Program; ADMIT Internal Medicine
PROC: 0D20XUZ Change Feeding Device in Upper Intestinal Tract, External Approach (ICD-10-PCS; 2018-06-08)
PROC: 0JB70ZZ Excision of Back Subcutaneous Tissue and Fascia, Open Approach (ICD-10-PCS; principal; 2018-06-09)
DX: A41.9 Sepsis, unspecified organism (principal); L89.154 Pressure ulcer of sacral region, stage 4; G93.41 Metabolic encephalopathy; E43 Unspecified severe protein-calorie malnutrition; N39.0 Urinary tract infection, site not specified; A04.72 Enterocolitis due to Clostridium difficile, not specified as recurrent; K94.23 Gastrostomy malfunction; E87.0 Hyperosmolality and hypernatremia; K92.0 Hematemesis; Z68.1 Body mass index [BMI] 19.9 or less, adult; R65.20 Severe sepsis without septic shock; R73.9 Hyperglycemia, unspecified; K21.9 Gastro-esophageal reflux disease without esophagitis; R13.19 Other dysphagia; I10 Essential (primary) hypertension; F03.90 Unspecified dementia, unspecified severity, without behavioral disturbance, psychotic disturbance, mood disturbance, and anxiety; R62.7 Adult failure to thrive; I95.9 Hypotension, unspecified; D47.3 Essential (hemorrhagic) thrombocythemia; E87.8 Other disorders of electrolyte and fluid balance, not elsewhere classified; E83.41 Hypermagnesemia; R74.0 Nonspecific elevation of levels of transaminase and lactic acid dehydrogenase [LDH]; L89.311 Pressure ulcer of right buttock, stage 1; E87.6 Hypokalemia; L89.212 Pressure ulcer of right hip, stage 2; R31.21 Asymptomatic microscopic hematuria; Z81.1 Family history of alcohol abuse and dependence; Z80.9 Family history of malignant neoplasm, unspecified; Z79.899 Other long term (current) drug therapy; Z78.1 Physical restraint status; Z66 Do not resuscitate

== ENCOUNTER 2018-08-30 18:30 | Inpatient (IN) | payer MEDICARE, OTHER ==
[~2018-08-30] VITALS: Ht 152.4 cm; Wt 50.6 kg
--- NOTE | ~2018-08-30 | PR ---
[place], [place] PROGRESS NOTE [id number] UNIT #: [id number] ROOM: 524 DOCTOR: ОЛЕГ JENNINGS,STEPHEN BIRTHDATE: [birth year] DOS: 09/06/2018 ADDENDUM This is an addendum to the progress note done by the nurse practitioner Nevaeh Adam on 09/06/2018. I agree with the assessment and plan made by the nurse practitioner Nevaeh Adam. I reviewed the labs and imaging, made the necessary changes in the note. Stephen Denney MD CM:PNTRANS [phone] STEPHEN DENNEY MD 10/02/18 0854 interface
--- NOTE | ~2018-08-30 | O ---
[place], [place] OPERATIVE NOTE NAME: SOMMER GRANDA UNIT #: [id number] ROOM: 524 DOCTOR: JORGE ALBERTO LOPEZ MD BIRTHDATE: [birth year] DOS: 09/08/2018 INDICATIONS: The patient has presented with neurogenic dysphagia, PEG tube dependent, the PEG tube has broken, we have been called by nursing staff for exchange and modification of PEG. PROCEDURE: Antral abdominal wall, aseptically was sterilized and existing PEG tube was deflated. Percutaneously was pulled out. SCOPE: SHALA gastrostomy tube Malian 20 was utilized and same ostomy site was utilized. After sterilization, the tube was introduced into the ostomy by Dr. Oden and 15 mL of saline was infused for balloon inflation. Anchors placed. Additional straps were added. The patient sent for radiologic confirmation of the balloon in the intragastric space and the patient tolerated the procedure well. Otherwise, as far as history is concerned, the patient with dementia, bedridden, neurogenic dysphagia history. REVIEW OF SYSTEMS: Cannot be obtained from her. PHYSICAL EXAMINATION: GENERAL: Essentially bedridden. HEENT: Benign, dry mouth. NECK: Supple. LUNGS: Vesicular. HEART: Normal sinus rhythm, no gallop, no murmur. ABDOMEN: Soft. No hepato-organomegaly. Bowel sounds present. EXTREMITIES: No cyanosis, no pedal edema. NEUROLOGICAL: Alert. Disoriented. LABORATORY DATA: Labs reviewed, records reviewed. Status post malfunctioning PEG tube removal, status post replacement. PLAN AND DISCUSSION: After x-ray of the abdomen, can restart utilization of MAR and feedings as were. [place], [place] OPERATIVE NOTE NAME: SOMMER GRANDA UNIT #: [id number] ROOM: 524 DOCTOR: JORGE ALBERTO LOPEZ MD BIRTHDATE: [birth year] JORGE ALBERTO LOPEZ MD CM:OPRECORD:OPERATIVE NOTE [phone] JORGE ALBERTO LOPEZ MD 09/09/18 7577 interface
--- NOTE | ~2018-08-30 | O ---
[place], [place] OPERATIVE NOTE [id number] UNIT #: [id number] ROOM: 524 DOCTOR: JORGE ALBERTO LOPEZ MD BIRTHDATE: [birth year] DOS: 09/01/2018 PROCEDURE: Today's procedure part of investigation is panendoscopy plus removal of existing PEG percutaneously, replacement with a size 20, size larger than existing previous G-tube with a size 20. REPORT: After putting the patient in left lateral position and application of lubricant to the scope, the scope was introduced. Thereafter, under direct visualization, advanced through the length of esophagus without difficulty. Gastric pouch was entered. Duodenal patency assured. Existing PEG tube has migrated into the abdominal fascia. This was removed percutaneously and new SHALA gastrostomy tube size 20 was replaced, inflated with 15 mL of normal saline, anchors from outside placed, patency checked, tolerated the procedure well. IMPRESSION: Migrated PEG tube, status post removal, replacement with gastrostomy feeding SHALA device size 20. PLAN: Resumption of feeding, otherwise, hiatal hernia, gastritis all has been recognized. Thank you very indeed. JORGE ALBERTO LOPEZ MD CM:OPRECORD:OPERATIVE NOTE 01 3 JORGE ALBERTO LOPEZ MD 09/02/184 interface
--- NOTE | ~2018-08-30 | CON ---
[place], [place] REPORT OF CONSULTATION NAME: SOMMER GRANDA UNIT #: [id number] ROOM: 524 DOCTOR: JORGE ALBERTO LOPEZ MD BIRTHDATE: [birth year] DOS: 09/01/2018 GASTROENDOSCOPIC REPORT HISTORY OF PRESENT ILLNESS: This is a 78-year-old patient who presented in the Emergency Room with confusion, lethargy, malfunctioning PEG tube, dementia, abdominal pain. PAST MEDICAL HISTORY: Associated with metabolic encephalopathy, GI bleed, diarrhea, fatty liver, leaking PEG tube, protein-calorie malnutrition, bedridden. PAST SURGICAL HISTORY: PEG, hip and back surgery. SOCIAL HISTORY: Nonsmoker, nonalcohol consumer. Resides in jail. FAMILY HISTORY: Noncontributory. ALLERGIES: No known medications. HOME MEDICATIONS: Reviewed including omeprazole and multi others reviewed. REVIEW OF SYSTEMS: Cannot be obtained from her due to the cognitive impairment. PHYSICAL EXAMINATION: VITAL SIGNS: Stable. GENERAL: Bedridden, semi- position. HEENT: Dry mouth. Few teeth residue. NECK: Supple. LUNGS: Few scattered rhonchi. HEART: Normal sinus rhythm, no gallop, no murmur. ABDOMEN: Soft. No hepato-organomegaly. Bowel sounds present. Existing PEG apparently is in place with some leaking. EXTREMITIES: Semi-flexed. NEUROLOGIC: Alert, disoriented. Labs reviewed, records reviewed. PLAN AND DISCUSSION: This PEG has to be pulled and replaced and other etiologies of emesis, gastrointestinal bleed to be investigated. We are going to organize endoscopy and reapproved removal, replacement. Thank you very much indeed. [place], [place] REPORT OF CONSULTATION NAME: SOMMER GRANDA UNIT #: [id number] ROOM: 524 DOCTOR: JORGE ALBERTO LOPEZ MD BIRTHDATE: [birth year] JORGE ALBERTO LOPEZ MD CM:CONSTR:REPORT OF CONSULTATION 01 09/02/18 0315 interface
--- NOTE | ~2018-08-30 | EKG ---
[place], [place] ELECTROCARDIOGRAM REPORT NAME: SOMMER GRANDA UNIT #: [id number] ROOM: 524 DOCTOR: MARY DRAFT REPORT BIRTHDATE: [birth year] [facility] Test Date: 2018-08-30 Test Time: 18:52:37 Pat Name: SOMMER GRANDA Department: Room: 524 Gender: F Aids Counselor: Denia Paz : 1940 Requested By: CHARLENE JUAREZ DNP Order Number: [id number] Reading MD: Nanci Zacarias Measurements Intervals [place] Rate: 90 P: 83 NH: 122 QRS: -6 QRSD: 74 T: 13 QT: 351 QTc: 430 Interpretive Statements Sinus rhythm Abnormal R-wave progression, late transition Borderline ST elevation, lateral leads Compared to ECG 06/05/2018 21:44:48 ST (T wave) deviation now present Sinus tachycardia no longer present Left bundle-branch block no longer present Electronically Signed On 08-31-2018 12:52:21 PDT by Nanci Zacarias CM:EKGRPT:ELECTROCARDIOGRAM REPORT [id number] CHARLENE JUAREZ DNP EPIPHANY DRAFT REPORT CHARLENE JUAREZ DNP
--- NOTE | ~2018-08-30 | PR ---
[place], [place] PROGRESS NOTE NAME: SOMMER GRANDA UNIT #: [id number] ROOM: 524 DOCTOR: SHRUTI STREETER BIRTHDATE: [birth year] DOS: 09/06/2018 SUBJECTIVE: The patient is being followed for bacteremia, which is deemed a contaminant. She had positive blood culture for Staph epidermidis on 08/30. Repeat blood cultures from the remained sterile. Urine cultures grew Proteus. She is receiving antibiotics for urinary tract infection. She has been afebrile. The patient does respond somewhat, though she seems to be quite sleepy and slow to respond. She denies any pain, shortness of breath. No nausea, vomiting or diarrhea. She has a PEG, through which she is receiving feeding. LABORATORY DATA: WBC 7.7, platelets 506. BUN 6, creatinine 0.37. PHYSICAL EXAMINATION: VITAL SIGNS: Temperature 98.5, pulse 70, respirations 16 and BP 135/74. GENERAL: A 78-year-old female, in no acute distress. HEAD, EYES, EARS, NOSE AND THROAT: Normocephalic. NECK: Supple. No thrush. LUNGS: Clear to auscultation bilaterally. Respirations even and unlabored. HEART: Regular rhythm. No murmur appreciated. ABDOMEN: Soft, nondistended. PEG site, no purulent discharge or cellulitis. EXTREMITIES: No edema or deformity. SKIN: Warm, dry, free of rashes. ASSESSMENT: Urinary tract infection with Proteus. PLAN: She is to continue the Rocephin while inpatient and then discharged with Omnicef with planned treatment of a total of 7 days. Staph epidermidis bacteremia was considered contaminant. JUNE FERDINAND BAHENA [place], [place] PROGRESS NOTE NAME: SOMMER GRANDA UNIT #: [id number] ROOM: 524 DOCTOR: SHRUTI STREETERJUNE BIRTHDATE: [birth year] Eleanor Carbajal MD CM:BRIAN 143 10 KRIS BAHENA [facility] 09/06/18 151 interface
--- NOTE | ~2018-08-30 | PR ---
[place], [place] PROGRESS NOTE NAME: SOMMER GRANDA UNIT #: [id number] ROOM: 524 DOCTOR: SHRUTI STREETER BIRTHDATE: [birth year] DOS: 09/07/2018 SUBJECTIVE: The patient is being followed for urinary tract infection with Proteus. She remains on Rocephin. She awakens easily, minimally responsive. Denies any nausea, vomiting or diarrhea. Denies any pain. She has been afebrile. She has a PEG tube as well as Delgado catheter. LABORATORY DATA: WBC 7.5, platelets 561, BUN 7, creatinine 0.42. LFTs within normal limits. Albumin 2.6. PHYSICAL EXAMINATION: VITAL SIGNS: Temperature 97.9, pulse 66, respirations 16, BP 101/51. GENERAL: A 78-year-old female who is sleeping, awakens easily, in no acute distress. HEAD, EYES, EARS, NOSE AND THROAT: Normocephalic, no thrush. NECK: Supple. LUNGS: Clear to auscultation bilaterally. Respirations even and unlabored. HEART: Regular rhythm. No murmur appreciated. ABDOMEN: Soft, nondistended. PEG site, no purulent discharge or cellulitis. Delgado catheter draining clear yellow urine. EXTREMITIES: No edema or deformity. SKIN: Warm, dry, free of rashes. ASSESSMENT: Urinary tract infection with Proteus. PLAN: She is to continue Rocephin while inpatient and then upon discharge can be treated with Omnicef. She is receiving total of 7 days of treatment, prior Staph epidermidis bacteremia is considered a contaminant. ADDENDUM I agree with the assessment and plan made by the nurse practitioner. I reviewed the labs and imaging and made the necessary changes in the note. JUNE FERDINAND BAHENA [place], [place] PROGRESS NOTE NAME: SOMMER GRANDA UNIT #: [id number] ROOM: 524 DOCTOR: SHRUTI STREETER BIRTHDATE: [birth year] Eleanor Carbajal MD CM:BRIAN [id number] JUNE SHRUTI [facility] 10/02/18 0605 interface
--- NOTE | ~2018-08-30 | POSTOPNOTE ---
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
[2018-08-30 18:30] VITALS: BP 90/40
[~2018-08-30 18:30] MED LIST changes: +ISOSOURCE 1.51000 M1 PO; +[UNRECOGNIZED DRUG - CODE] PF
[2018-08-30 19:40] LABS: HEMATOCRIT 38.7 % (37.0-47.0); MEAN CELL VOLUME 89.2 fl (81.0-99.0); MEAN CORPUSCULAR HGB 27.6 pg (27.0-31.0); MEAN PLATELET VOLUME 10.1 fl (9.6-12.3); PLATELET COUNT AUTOMATED 364 10*3/uL (130-400); RED BLOOD COUNT 4.34 10*6/uL (4.10-5.10); RED CELL DISTRI WIDTH 15.8 % (0-14.5); WHITE BLOOD COUNT 18.4 10*3/uL (4.8-10.8)
[2018-08-30 19:43] LABS: BILIRUBIN NEGATIVE (NEGATIVE); BLOOD 3+ (NEGATIVE); CLARITY CLOUDY (CLEAR); COLOR YELLOW (YELLOW); GLUCOSE NEGATIVE (NEGATIVE); KETONE NEGATIVE (NEGATIVE); LEUKO ESTERASE 3+ (NEGATIVE); NITRITE NEGATIVE (NEGATIVE); SPECIFIC GRAVITY 1.005 (1.005-1.030); UROBILINOGEN 0.2 E.U./dl (0.2-1.0)
[2018-08-30 19:44] LABS: WBC TNTC wbc/hpf (0-5)
[2018-08-30 19:53] LABS: ACT PARTIAL THROMBO TIME 28.8 SECONDS (20.0-32.1); INTERNATIONAL NORM RATIO 0.9 (2.0-3.5)
[2018-08-30 19:57] LABS: ALBUMIN 2.3 gm/dl (3.1-4.5); ALKALINE PHOSPHATASE 86 U/L (45-117); BUN 27 mg/dl (7-24); CHLORIDE 98 mmol/L (98-107); CREATININE 0.74 mg/dL (0.55-1.02); LIPASE 193 U/L (73-393); POTASSIUM 3.6 mmol/L (3.5-5.1); SGOT/AST 30 IU/L (3-35); SGPT/ALT 30 U/L (12-78); SODIUM 135 mmol/L (136-145); TOTAL PROTEIN 6.8 gm/dL (6.4-8.2)
[2018-08-30 20:02] LABS: TROPONIN I < 0.015 ng/ml (<0.045)
[2018-08-30 20:10] LABS: PLATELET SUFFICIENCY NORMAL (NORMAL); TOTAL CELLS COUNTED 100 #CELLS
[2018-08-30 21:09] VITALS: BP 102/54
[2018-08-30 22:00] VITALS: BP 98/76
[2018-08-30] MEDS ORDERED: POTASSIUM CHLO10 ME4 PO (23:40)
[2018-08-31 06:15] LABS: BASO % 0.2 % (0.0-1.0); EOS % 0.2 % (1.0-4.0); HEMATOCRIT 34.6 % (37.0-47.0); HEMOGLOBIN 10.9 g/dl (12.0-16.0); LYMPH # 0.6 10*3/uL (1.3-4.4); LYMPH % 4.8 % (27.0-41.0); MEAN CELL VOLUME 87.8 fl (81.0-99.0); MEAN CORPUSCULAR HGB 27.7 pg (27.0-31.0); MEAN CORPUSCULAR HGB CONC 31.5 g/dl (33.0-37.0); MEAN PLATELET VOLUME 9.8 fl (9.6-12.3); MONO # 0.6 10*3/uL (0.1-1.0); NEUT # 11.4 10*3/uL (2.3-7.9); PLATELET COUNT AUTOMATED 343 10*3/uL (130-400); RED BLOOD COUNT 3.94 10*6/uL (4.10-5.10); RED CELL DISTRI WIDTH 15.6 % (0-14.5); WHITE BLOOD COUNT 12.8 10*3/uL (4.8-10.8)
[2018-08-31 06:43] LABS: ALBUMIN 2.5 gm/dl (3.1-4.5); ALKALINE PHOSPHATASE 80 U/L (45-117); BUN 20 mg/dl (7-24); CHLORIDE 103 mmol/L (98-107); CREATININE 0.59 mg/dL (0.55-1.02); POTASSIUM 3.8 mmol/L (3.5-5.1); SGOT/AST 37 IU/L (3-35); SGPT/ALT 40 U/L (12-78); SODIUM 140 mmol/L (136-145); TOTAL PROTEIN 6.8 gm/dL (6.4-8.2)
[2018-08-31 08:24] VITALS: BP 110/56
[2018-08-31 15:47] VITALS: BP 98/55
[2018-09-01] VITALS: BP 113/55
[2018-09-01 08:00] VITALS: BP 100/58
[2018-09-01 16:00] VITALS: BP 108/62
[2018-09-01 19:54] VITALS: BP 87/48
[2018-09-01 20:09] VITALS: BP 110/60
[2018-09-01 20:24] VITALS: BP 112/56
[2018-09-02] VITALS: BP 118/56
[2018-09-02 06:57] LABS: BASO # 0.1 10*3/uL (0.0-0.1); EOS # 0.2 10*3/uL (0.0-0.4); EOS % 2.4 % (1.0-4.0); HEMOGLOBIN 9.6 g/dl (12.0-16.0); LYMPH # 0.6 10*3/uL (1.3-4.4); LYMPH % 7.8 % (27.0-41.0); MEAN CELL VOLUME 88.6 fl (81.0-99.0); MEAN CORPUSCULAR HGB 27.4 pg (27.0-31.0); MEAN PLATELET VOLUME 9.5 fl (9.6-12.3); MONO # 0.4 10*3/uL (0.1-1.0); MONO % 6.1 % (3.0-9.0); NEUT # 5.9 10*3/uL (2.3-7.9); NEUT % 82.1 % (47.0-73.0); PLATELET COUNT AUTOMATED 349 10*3/uL (130-400); RED CELL DISTRI WIDTH 15.3 % (0-14.5); WHITE BLOOD COUNT 7.2 10*3/uL (4.8-10.8)
[2018-09-02 07:20] LABS: BUN 13 mg/dl (7-24); CHLORIDE 108 mmol/L (98-107); CREATININE 0.26 mg/dL (0.55-1.02); POTASSIUM 2.6 mmol/L (3.5-5.1); SODIUM 142 mmol/L (136-145)
[2018-09-02 08:00] VITALS: BP 118/52
[2018-09-02 16:00] VITALS: BP 130/82
[2018-09-02 20:00] VITALS: BP 131/58
[2018-09-03] VITALS: BP 123/96
[2018-09-03 06:41] LABS: BASO # 0.1 10*3/uL (0.0-0.1); BASO % 0.8 % (0.0-1.0); EOS # 0.2 10*3/uL (0.0-0.4); EOS % 3.3 % (1.0-4.0); HEMATOCRIT 30.9 % (37.0-47.0); HEMOGLOBIN 9.8 g/dl (12.0-16.0); LYMPH # 0.8 10*3/uL (1.3-4.4); MEAN CELL VOLUME 85.8 fl (81.0-99.0); MEAN CORPUSCULAR HGB 27.2 pg (27.0-31.0); MEAN CORPUSCULAR HGB CONC 31.7 g/dl (33.0-37.0); MEAN PLATELET VOLUME 9.5 fl (9.6-12.3); MONO # 0.4 10*3/uL (0.1-1.0); NEUT # 4.5 10*3/uL (2.3-7.9); NEUT % 75.4 % (47.0-73.0); PLATELET COUNT AUTOMATED 423 10*3/uL (130-400); RED CELL DISTRI WIDTH 14.8 % (0-14.5)
[2018-09-03 07:00] LABS: BUN 11 mg/dl (7-24); CHLORIDE 107 mmol/L (98-107); CREATININE 0.25 mg/dL (0.55-1.02); POTASSIUM 2.5 mmol/L (3.5-5.1); SODIUM 141 mmol/L (136-145)
[2018-09-03 08:15] VITALS: BP 139/76
[2018-09-03 11:22] VITALS: BP 132/78
[2018-09-03 16:00] VITALS: BP 104/54
[2018-09-04] VITALS: BP 100/54
[2018-09-04 07:37] VITALS: BP 105/60
[2018-09-04 11:08] LABS: BASO % 0.7 % (0.0-1.0); EOS # 0.2 10*3/uL (0.0-0.4); EOS % 3.2 % (1.0-4.0); HEMATOCRIT 32.3 % (37.0-47.0); HEMOGLOBIN 10.2 g/dl (12.0-16.0); LYMPH # 0.9 10*3/uL (1.3-4.4); LYMPH % 15.5 % (27.0-41.0); MEAN CELL VOLUME 87.1 fl (81.0-99.0); MEAN CORPUSCULAR HGB 27.5 pg (27.0-31.0); MEAN CORPUSCULAR HGB CONC 31.6 g/dl (33.0-37.0); MEAN PLATELET VOLUME 9.2 fl (9.6-12.3); MONO # 0.4 10*3/uL (0.1-1.0); MONO % 7.1 % (3.0-9.0); NEUT # 4.1 10*3/uL (2.3-7.9); NEUT % 72.8 % (47.0-73.0); PLATELET COUNT AUTOMATED 394 10*3/uL (130-400); RED BLOOD COUNT 3.71 10*6/uL (4.10-5.10); WHITE BLOOD COUNT 5.7 10*3/uL (4.8-10.8)
[2018-09-04 11:18] LABS: BUN 12 mg/dl (7-24); CHLORIDE 102 mmol/L (98-107); CREATININE 0.39 mg/dL (0.55-1.02); POTASSIUM 3.3 mmol/L (3.5-5.1); SODIUM 138 mmol/L (136-145)
[2018-09-04 12:00] VITALS: BP 107/58
[2018-09-04 16:00] VITALS: BP 110/62
[2018-09-04 20:00] VITALS: BP 111/63
[2018-09-05] VITALS: BP 99/66
[2018-09-05 08:00] VITALS: BP 141/79
[2018-09-05 16:00] VITALS: BP 125/44
[2018-09-06] VITALS: BP 156/85
[2018-09-06 06:56] LABS: BASO # 0.1 10*3/uL (0.0-0.1); BASO % 1.2 % (0.0-1.0); EOS # 0.3 10*3/uL (0.0-0.4); EOS % 4.1 % (1.0-4.0); HEMATOCRIT 37.4 % (37.0-47.0); HEMOGLOBIN 11.6 g/dl (12.0-16.0); LYMPH # 1.1 10*3/uL (1.3-4.4); LYMPH % 14.3 % (27.0-41.0); MEAN CELL VOLUME 86.8 fl (81.0-99.0); MEAN CORPUSCULAR HGB 26.9 pg (27.0-31.0); MEAN PLATELET VOLUME 9.6 fl (9.6-12.3); MONO # 0.5 10*3/uL (0.1-1.0); MONO % 6.7 % (3.0-9.0); NEUT # 5.7 10*3/uL (2.3-7.9); NEUT % 73.1 % (47.0-73.0); PLATELET COUNT AUTOMATED 506 10*3/uL (130-400); RED BLOOD COUNT 4.31 10*6/uL (4.10-5.10); RED CELL DISTRI WIDTH 15.1 % (0-14.5); WHITE BLOOD COUNT 7.7 10*3/uL (4.8-10.8)
[2018-09-06 07:04] LABS: BUN 6 mg/dl (7-24); CHLORIDE 104 mmol/L (98-107); CREATININE 0.37 mg/dL (0.55-1.02); POTASSIUM 3.9 mmol/L (3.5-5.1); SODIUM 140 mmol/L (136-145)
[2018-09-06 08:00] VITALS: BP 135/74
[2018-09-06 16:00] VITALS: BP 141/74
[2018-09-07] VITALS: BP 109/53
[2018-09-07 06:45] LABS: BASO # 0.1 10*3/uL (0.0-0.1); BASO % 1.2 % (0.0-1.0); EOS # 0.5 10*3/uL (0.0-0.4); HEMATOCRIT 37.3 % (37.0-47.0); HEMOGLOBIN 11.6 g/dl (12.0-16.0); LYMPH # 1.2 10*3/uL (1.3-4.4); LYMPH % 15.5 % (27.0-41.0); MEAN CORPUSCULAR HGB 27.4 pg (27.0-31.0); MEAN CORPUSCULAR HGB CONC 31.1 g/dl (33.0-37.0); MEAN PLATELET VOLUME 9.1 fl (9.6-12.3); MONO # 0.6 10*3/uL (0.1-1.0); MONO % 7.7 % (3.0-9.0); NEUT # 5.1 10*3/uL (2.3-7.9); NEUT % 68.7 % (47.0-73.0); PLATELET COUNT AUTOMATED 561 10*3/uL (130-400); RED BLOOD COUNT 4.24 10*6/uL (4.10-5.10); RED CELL DISTRI WIDTH 15.6 % (0-14.5); WHITE BLOOD COUNT 7.5 10*3/uL (4.8-10.8)
[2018-09-07 06:59] LABS: ALBUMIN 2.6 gm/dl (3.1-4.5); ALKALINE PHOSPHATASE 72 U/L (45-117); BUN 7 mg/dl (7-24); CHLORIDE 104 mmol/L (98-107); CREATININE 0.42 mg/dL (0.55-1.02); POTASSIUM 4.7 mmol/L (3.5-5.1); SGOT/AST 22 IU/L (3-35); SGPT/ALT 29 U/L (12-78); SODIUM 138 mmol/L (136-145); TOTAL PROTEIN 6.4 gm/dL (6.4-8.2)
[2018-09-07 08:00] VITALS: BP 101/51
[2018-09-07 16:00] VITALS: BP 112/52
[2018-09-07 20:00] VITALS: BP 123/69
[2018-09-08] VITALS: BP 111/65
[2018-09-08 08:00] VITALS: BP 123/66
[2018-09-08 16:00] VITALS: BP 119/87
[2018-09-08 20:00] VITALS: BP 112/69
[2018-09-09 08:14] VITALS: BP 112/74
[2018-09-09 12:03] VITALS: BP 106/66
[2018-09-09] MEDS ORDERED: OMNICEF300 MG PO (12:11)
== END 2018-09-09 14:40 | disposition other institution (70) | DRG 871 ==
LOC: ED 18:30 → 5E 20:52 → EDHOLD 20:52 → 5E 22:02
PROVIDERS: Internal Medicine Nephrology; Nurse Practitioner Family; ADMIT Internal Medicine
PROC: 0D20XUZ Change Feeding Device in Upper Intestinal Tract, External Approach (ICD-10-PCS; principal; 2018-09-01)
PROC: 0D20XUZ Change Feeding Device in Upper Intestinal Tract, External Approach (ICD-10-PCS; 2018-09-08)
DX: A41.1 Sepsis due to other specified staphylococcus (principal); L89.153 Pressure ulcer of sacral region, stage 3; G93.41 Metabolic encephalopathy; N13.6 Pyonephrosis; E87.0 Hyperosmolality and hypernatremia; K94.23 Gastrostomy malfunction; R65.20 Severe sepsis without septic shock; K21.9 Gastro-esophageal reflux disease without esophagitis; F03.90 Unspecified dementia, unspecified severity, without behavioral disturbance, psychotic disturbance, mood disturbance, and anxiety; R29.6 Repeated falls; F32.9 Major depressive disorder, single episode, unspecified; M19.90 Unspecified osteoarthritis, unspecified site; B96.4 Proteus (mirabilis) (morganii) as the cause of diseases classified elsewhere; Z96.642 Presence of left artificial hip joint; Z66 Do not resuscitate; Z51.5 Encounter for palliative care; I10 Essential (primary) hypertension; K76.0 Fatty (change of) liver, not elsewhere classified; G62.9 Polyneuropathy, unspecified; E87.8 Other disorders of electrolyte and fluid balance, not elsewhere classified; E86.0 Dehydration; E87.6 Hypokalemia; Y83.3 Surgical operation with formation of external stoma as the cause of abnormal reaction of the patient, or of later complication, without mention of misadventure at the time of the procedure; Y92.89 Other specified places as the place of occurrence of the external cause; Z87.440 Personal history of urinary (tract) infections; Z87.442 Personal history of urinary calculi; Z81.1 Family history of alcohol abuse and dependence; Z80.8 Family history of malignant neoplasm of other organs or systems; Z79.899 Other long term (current) drug therapy

== ENCOUNTER 2018-11-22 12:11 | Emergency (ER) | payer MEDICARE, OTHER ==
[~2018-11-22] VITALS: Ht 172.7 cm; Wt 56.7 kg
[~2018-11-22 12:11] MED LIST changes: +OMNICEF300 MG PO; +POTASSIUM CHLO10 ME4 PO
== END 2018-11-22 13:48 | disposition home or self-care (01) ==
LOC: ED 12:11
DX: K94.23 Gastrostomy malfunction (principal); K21.9 Gastro-esophageal reflux disease without esophagitis; Z79.899 Other long term (current) drug therapy

== ENCOUNTER 2018-12-08 16:41 | Emergency (ER) | payer MEDICARE, OTHER ==
[~2018-12-08] VITALS: Ht 167.6 cm; Wt 57.6 kg
== END 2018-12-08 18:30 | disposition home or self-care (01) ==
LOC: ED 16:41
DX: K94.23 Gastrostomy malfunction (principal); K21.9 Gastro-esophageal reflux disease without esophagitis; E78.00 Pure hypercholesterolemia, unspecified; I10 Essential (primary) hypertension; G62.9 Polyneuropathy, unspecified; Z98.890 Other specified postprocedural states; Z79.899 Other long term (current) drug therapy

== ENCOUNTER 2018-12-16 11:38 | Emergency (ER) | payer MEDICARE, OTHER ==
[~2018-12-16] VITALS: Wt 45.4 kg
== END 2018-12-16 17:07 | disposition other institution (70) ==
LOC: ED 11:38
DX: R62.7 Adult failure to thrive (principal); R11.2 Nausea with vomiting, unspecified; Z79.899 Other long term (current) drug therapy